=== PATIENT | female | born 1950 | race Caucasian/White ===

== ENCOUNTER 2016-09-16 15:51 | Emergency (ER) | payer MEDICARE, OTHER ==
--- NOTE | 2016-09-16 16:38 | ER Document Report ---
ED General - General Time seen by provider: 16:25 Mode of Arrival: Medic Information source: Patient, Emergency Med Personnel TRAVEL OUTSIDE OF THE [place] IN LAST 30 DAYS: No - HPI Onset: Other - Refer to HPI notes Similar symptoms previously: Yes Recently seen / treated by doctor: No <JAMESON MONTESINOS - Last Filed: 09/16/16 19:45> <SANDRINEJUAN RAMONMERRILL - Last Filed: 09/16/16 23:36> - General Chief Complaint: Pain All Over Stated Complaint: WEAKNESS Notes: Patient is a 66-year-old female presenting to the emergency department for back pain. Patient states that she has chronic back pain which is worse today. Patient does not know what has increased her back pain today and denies any recent falls, fever, dysuria, or numbness/tingling to her lower extremities. Patient does complain of some incontinence for the past month along with some diarrhea. Patient uses a wheelchair but states she is able to stand. Patient has not ambulated in 2 years because of her rheumatoid arthritis. Patient states she lives at home. Patient states she does not want any pain medications for her back pain. Patient has a history of degenerative disc disease, rheumatoid arthritis, and breast cancer. (JAMESON MONTESINOS) - Related Data Allergies/Adverse Reactions: Iodinated Contrast Media - Oral and [IV Dye, Iodine Containing] Allergy (Severe , Verified 08/07/14 16:24) Shortness of Breath Penicillins Allergy (Severe, Verified 08/07/14 16:24) shock Sulfa (Sulfonamide Antibiotics) Allergy (Severe, Verified 08/07/14 16:24) shock bee stings Allergy (Severe, Uncoded 08/07/14 16:24) Shortness of Breath fire ants Allergy (Severe, Uncoded 08/07/14 16:24) Shortness of Breath Past Medical History - General Information source: Patient - Social History Smoking Status: Never Smoker Chew tobacco use (# tins/day): No Frequency of alcohol use: None Drug Abuse: None Family History: None - Past Medical History Cardiac Medical History: Reports: Hx Heart Attack, Hx Hypertension Pulmonary Medical History: Reports: Hx Bronchitis Neurological Medical History: Reports: Hx Cerebrovascular Accident - Apr 2010-- right side deficits, Hx Seizures Renal/ Medical History: Reports: Hx Kidney Stones GI Medical History: Musculoskeltal Medical History: Reports Hx Arthritis - RHEUMATIOD, Reports Other - Degenerative disc disease Psychiatric Medical History: Reports: Hx Depression Infectious Medical History: Past Surgical History: Reports: Hx Orthopedic Surgery - Right ankle surgery, right hip replacement - Immunizations Hx Diphtheria, Pertussis, Tetanus Vaccination: Yes Hx Pneumococcal Vaccination: 04/12/12 <JAMESON MONTESINOS - Last Filed: 09/16/16 19:45> Review of Systems - Review of Systems Constitutional: No symptoms reported EENT: No symptoms reported Cardiovascular: No symptoms reported Respiratory: No symptoms reported Gastrointestinal: No symptoms reported Genitourinary: No symptoms reported Female Genitourinary: No symptoms reported Musculoskeletal: See HPI, Back pain Skin: No symptoms reported Hematologic/Lymphatic: No symptoms reported Neurological/Psychological: No symptoms reported -: Yes All other systems reviewed and negative <JAMESON MONTESINOS - Last Filed: 09/16/16 19:45> Physical Exam <JAMESON MONTESINOS - Last Filed: 09/16/16 19:45> <MERRILL HOPKINS - Last Filed: 09/16/16 23:36> - Vital signs Vitals: Temp Pulse Resp BP Pulse Ox 98.1 F 82 16 127/71 H 98 09/16/16 16:45 09/16/16 16:45 09/16/16 16:45 09/16/16 16:45 09/16/16 16:45 - Notes Notes: GENERAL: Alert, interacts well. No acute distress. HEAD: Normocephalic, atraumatic. EYES: Pupils equal, round, and reactive to light. Extraocular movements intact. ENT: Oral mucosa moist, tongue midline. NECK: Full range of motion. Supple. Trachea midline. LUNGS: Clear to auscultation bilaterally, no wheezes, rales, or rhonchi. No respiratory distress. HEART: Regular rate and rhythm. No murmurs, gallops, or rubs. ABDOMEN: Soft, non-tender. Non-distended. Bowel sounds present in all 4 quadrants. BACK: Midline bony tenderness to palpation at the thoracic lumbar junction. RECTAL: Sensory intact, good rectal tone, no melena, soft brown stool. EXTREMITIES: Moves all 4 extremities spontaneously. No edema, radial and dorsalis pedis pulses 2/4 bilaterally. No cyanosis. NEUROLOGICAL: Alert and oriented x3. Normal speech. Bicep DTRs 2+ bilaterally, patellar DTRs are slightly diminished bilaterally. PSYCH: Normal affect, normal mood. SKIN: Warm, dry, normal turgor. No rashes or lesions noted. (JAMESON MONTESINOS) Course - Laboratory Result Diagrams: 09/16/16 18:15 09/16/16 18:15 <JAMESON MONTESINOS - Last Filed: 09/16/16 19:45> - Laboratory Result Diagrams: 09/16/16 18:15 09/16/16 18:15 <MERRILL HOPKINS - Last Filed: 09/16/16 23:36> - Re-evaluation Re-evalutation: 09/16/16 19:21 CBC shows leukocytosis of 15.2, CMP shows slightly elevated potassium 5.1, CO2 slightly low 21 otherwise unremarkable, urinalysis is significant for urinary tract infection, this is sent for culture. As the patient is allergic to penicillins and sulfa drugs patient's UTI will be treated with ciprofloxacin. Patient is aware of the risks of C. difficile colitis. Patient will return for fevers, acutely worsening of her chronic diarrhea or any new or concerning symptoms. (MERRILL HOPKINS) - Vital Signs Vital signs: Temp Pulse Resp BP Pulse Ox 98.3 F 88 20 132/89 H 98 09/16/16 20:08 09/16/16 20:08 09/16/16 20:08 09/16/16 20:08 09/16/16 20:08 - Laboratory Laboratory results interpreted by me: 09/16/16 09/16/16 09/16/16 16:45 18:15 18:15 WBC 15.2 H RBC 3.70 L MCV 106 H MCH 35.9 H Seg Neutrophils % 82.2 H Lymphocytes % 10.0 L Absolute Neutrophils 12.5 H Potassium 5.1 H Carbon Dioxide 21 L Glucose 118 H Direct Bilirubin 0.6 H Urine Protein 100 H Urine Ketones TRACE H Urine Blood MODERATE H Ur Leukocyte Esterase MODERATE H Discharge <JAMESON MONTESINOS - Last Filed: 09/16/16 19:45> <MERRILL HOPKINS - Last Filed: 09/16/16 23:36> - Discharge Clinical Impression: UTI (urinary tract infection) Qualifiers: Urinary tract infection type: acute cystitis Hematuria presence: with hematuria Qualified Code(s): N30.01 - Acute cystitis with hematuria Condition: Stable Disposition: HOME, SELF-CARE Instructions: Urinary Tract Infection ([facility]) Additional Instructions: Return for fevers, worsening back pain, confusion or any new or concerning symptoms. Prescriptions: Ciprofloxacin HCl [Cipro 500 mg Tablet] 500 mg PO BID #10 tablet Phenazopyridine HCl [Pyridium 200 mg Tablet] 200 mg PO TID #7 tablet Referrals: XIMENA MAR DO [NO LOCAL MD] - Follow up in 3-5 days Scribe Attestation: 09/16/16 23:36 I personally performed the services described in the documentation, reviewed and edited the documentation which was dictated to the scribe in my presence, and it accurately records my words and actions. (MERRILL HOPKINS) Scribe Documentation - Scribe Written by Reji:: Reji Davey, 09/16/16 20:00 acting as scribe for :: Jaime <JAMESON MONTESINOS - Last Filed: 09/16/16 19:45>
[2016-09-16 17:17] LABS: APPEARANCE,URINE TURBID; BILIRUBIN,URINE NEGATIVE (NEGATIVE); GLUCOSE, URINE NEGATIVE (NEGATIVE); KETONES,URINE TRACE mg/dL (NEGATIVE); LEUKOCYTE ESTERASE,URINE MODERATE (NEGATIVE); NITRITE,URINE NEGATIVE (NEGATIVE); PROTEIN,URINE 100 mg/dL (NEGATIVE); URINE SPECIFIC GRAVITY 1.016; UROBILINOGEN,URINE NEGATIVE mg/dL (<2.0)
[2016-09-16] MEDS ORDERED: CIPROFLOXACIN HCL 500 MG TABLET PO SCH (18:30)
[2016-09-16 18:43] LABS: ABSOLUTE LYMPHOCYTES (AUTO) 1.5 10^3/uL (0.5-4.7); ABSOLUTE MONOCYTES (AUTO) 1.1 10^3/uL (0.1-1.4); ABSOLUTE NEUT (AUTO) 12.5 10^3/uL (1.7-8.2); BASOPHILS % (AUTO) 0.3 % (0-2); HEMATOCRIT 39.1 % (36.0-47.0); HEMOGLOBIN 13.3 g/dL (12.0-15.5); HGB HCT DIFFERENCE 0.8; MEAN CORPUSCULAR HEMOGLOBIN 35.9 pg (27.0-33.4); MEAN CORPUSCULAR HGB CONC 34.1 g/dL (32.0-36.0); MEAN CORPUSCULAR VOLUME 106 fl (80-97); MONOCYTES % (AUTO) 7.5 % (3-13); RED CELL DISTRIBUTION WIDTH 13.6 % (11.5-14.0); SEGMENTED NEUTROPHILS % (AUTO) 82.2 % (42-78); WHITE BLOOD COUNT 15.2 10^3/uL (4.0-10.5)
[2016-09-16 18:56] LABS: ALANINE AMINOTRANSFERASE 10 U/L (9-52); ALBUMIN 3.5 g/dL (3.5-5.0); ALKALINE PHOSPHATASE 126 U/L (38-126); ANION GAP 12 (5-19); ASPARTATE AMINO TRANSFERASE 22 U/L (14-36); BILIRUBIN,DIRECT 0.6 mg/dL (0.0-0.4); BILIRUBIN,TOTAL 0.8 mg/dL (0.2-1.3); BLOOD UREA NITROGEN 19 mg/dL (7-20); CALCIUM 9.6 mg/dL (8.4-10.2); CARBON DIOXIDE 21 mmol/L (22-30); CHLORIDE 105 mmol/L (98-107); CREATININE RESULT 0.92 mg/dL (0.52-1.25); GLUCOSE 118 mg/dL (75-110); POTASSIUM 5.1 mmol/L (3.6-5.0); SODIUM 137.8 mmol/L (137-145); TOTAL PROTEIN 7.5 g/dL (6.3-8.2)
[2016-09-16] MEDS ORDERED: CIPROFLOXACIN HCL 500 MG TABLET PO ONE (19:30)
[2016-09-16 20:23] VITALS: BP 132/89
--- NOTE | 2016-09-17 13:00 | ER Document Report ---
Doctor's Note Notes: 09/17/16 12:57 I called and spoke with the patient's Mr. Abelardo Morris in follow-up, he states the patient is feeling much better, has no confusion, has no fevers. He states that he has not yet filled her antibiotic prescription. I did encourage him to fill her antibiotic prescription as soon as possible, I stressed the importance of taking the entire prescription as directed until it is gone. They will return for fevers, confusion or any new or concerning symptoms.
== END 2016-09-16 20:08 | disposition home or self-care (01) ==
LOC: ER 15:51
DX: N30.01 Acute cystitis with hematuria (principal); M06.9 Rheumatoid arthritis, unspecified; M54.9 Dorsalgia, unspecified; G89.29 Other chronic pain; R32 Unspecified urinary incontinence; R19.7 Diarrhea, unspecified; D72.829 Elevated white blood cell count, unspecified; I25.2 Old myocardial infarction; I10 Essential (primary) hypertension; Z99.3 Dependence on wheelchair; Z85.3 Personal history of malignant neoplasm of breast; Z91.041 Radiographic dye allergy status; Z88.0 Allergy status to penicillin; Z88.2 Allergy status to sulfonamides; Z91.030 Bee allergy status; Z91.038 Other insect allergy status; Z86.73 Personal history of transient ischemic attack (TIA), and cerebral infarction without residual deficits
CPT/HCPCS: 99285; 36415; 87086; 85025; 87088; 80053; 81001; 87186; 72110; 72070; A9270

== ENCOUNTER 2016-09-21 10:45 | Observation (INO) | payer MEDICARE, OTHER, MEDICAID ==
[2016-09-21 11:35] LABS: ABSOLUTE BASOPHILS # (AUTO) 0.1 10^3/uL (0.0-0.2); ABSOLUTE EOSINOPHILS # (AUTO) 0.1 10^3/uL (0.0-0.6); ABSOLUTE LYMPHOCYTES (AUTO) 3.1 10^3/uL (0.5-4.7); ABSOLUTE MONOCYTES (AUTO) 0.5 10^3/uL (0.1-1.4); ABSOLUTE NEUT (AUTO) 3.2 10^3/uL (1.7-8.2); BASOPHILS % (AUTO) 0.8 % (0-2); HEMATOCRIT 33.4 % (36.0-47.0); HEMOGLOBIN 11.3 g/dL (12.0-15.5); HGB HCT DIFFERENCE 0.5; LYMPHOCYTES % (AUTO) 44.4 % (13-45); MEAN CORPUSCULAR HEMOGLOBIN 35.8 pg (27.0-33.4); MEAN CORPUSCULAR HGB CONC 33.7 g/dL (32.0-36.0); MEAN CORPUSCULAR VOLUME 106 fl (80-97); RED BLOOD COUNT 3.15 10^6/uL (3.72-5.28); RED CELL DISTRIBUTION WIDTH 13.7 % (11.5-14.0); SEGMENTED NEUTROPHILS % (AUTO) 46.8 % (42-78); WHITE BLOOD COUNT 6.9 10^3/uL (4.0-10.5)
[2016-09-21 11:48] LABS: ALANINE AMINOTRANSFERASE 23 U/L (9-52); ALBUMIN 3.3 g/dL (3.5-5.0); ALKALINE PHOSPHATASE 122 U/L (38-126); ANION GAP 12 (5-19); ASPARTATE AMINO TRANSFERASE 18 U/L (14-36); BILIRUBIN,DIRECT 0.3 mg/dL (0.0-0.4); BILIRUBIN,TOTAL 0.3 mg/dL (0.2-1.3); BLOOD UREA NITROGEN 11 mg/dL (7-20); CALCIUM 8.8 mg/dL (8.4-10.2); CARBON DIOXIDE 23 mmol/L (22-30); CHLORIDE 106 mmol/L (98-107); CREATINE KINASE 30 U/L (30-135); CREATININE RESULT 1.03 mg/dL (0.52-1.25); GLUCOSE 90 mg/dL (75-110); MAGNESIUM 1.6 mg/dL (1.6-2.3); POTASSIUM 3.8 mmol/L (3.6-5.0); SODIUM 141.2 mmol/L (137-145); TOTAL PROTEIN 6.7 g/dL (6.3-8.2)
[2016-09-21 11:56] LABS: ALCOHOL < 10 mg/dL (NONE DETECTED)
[2016-09-21 11:59] LABS: CREATINE KINASE MB 0.97 ng/mL (<4.55)
[2016-09-21 12:00] LABS: TROPONIN I < 0.012 ng/mL
--- NOTE | 2016-09-21 12:05 | EKG REPORT ---
SEVERITY:- ABNORMAL ECG - SINUS RHYTHM ATRIAL PREMATURE COMPLEX LOW VOLTAGE IN FRONTAL LEADS ABNORMAL T, CONSIDER ISCHEMIA, DIFFUSE LEADS BORDERLINE PROLONGED QT INTERVAL : Confirmed by: Cassandra Maravilla 21-Sep-2016 12:04:52
[2016-09-21 12:21] LABS: APPEARANCE,URINE CLOUDY; BILIRUBIN,URINE NEGATIVE (NEGATIVE); GLUCOSE, URINE NEGATIVE (NEGATIVE); KETONES,URINE NEGATIVE (NEGATIVE); LEUKOCYTE ESTERASE,URINE LARGE (NEGATIVE); NITRITE,URINE POSITIVE (NEGATIVE); PROTEIN,URINE NEGATIVE (NEGATIVE); UROBILINOGEN,URINE NEGATIVE mg/dL (<2.0)
[2016-09-21 12:29] LABS: URINE BARBITURATES SCREEN NEGATIVE; URINE METHADONE SCREEN NEGATIVE; URINE OPIATES LOW UNCONFIRMED POSITIVE; URINE PHENCYCLIDINE SCREEN NEGATIVE
[2016-09-21] MEDS ORDERED: CEFTRIAXONE 1 GM/D5W RTU 50 ML IV ONE (14:06)
[2016-09-21] MEDS ORDERED: CEPHALEXIN 500 MG CAPSULE PO ONE (14:06)
--- NOTE | 2016-09-21 14:20 | ER Document Report ---
ED General - General Chief Complaint: Chest Pain Stated Complaint: CHEST PAIN Time Seen by Provider: 09/21/16 11:04 TRAVEL OUTSIDE OF THE [place] IN LAST 30 DAYS: No - Related Data Allergies/Adverse Reactions: Iodinated Contrast Media - Oral and [IV Dye, Iodine Containing] Allergy (Severe , Verified 08/07/14 16:24) Shortness of Breath Penicillins Allergy (Severe, Verified 08/07/14 16:24) shock Sulfa (Sulfonamide Antibiotics) Allergy (Severe, Verified 08/07/14 16:24) shock bee stings Allergy (Severe, Uncoded 08/07/14 16:24) Shortness of Breath fire ants Allergy (Severe, Uncoded 08/07/14 16:24) Shortness of Breath Past Medical History - Social History Smoking Status: Former Smoker Chew tobacco use (# tins/day): No Frequency of alcohol use: None Drug Abuse: None Family History: None - Past Medical History Cardiac Medical History: Reports: Hx Heart Attack, Hx Hypertension Pulmonary Medical History: Reports: Hx Bronchitis Neurological Medical History: Reports: Hx Cerebrovascular Accident - Apr 2010-- right side deficits, Hx Seizures Renal/ Medical History: Reports: Hx Kidney Stones GI Medical History: Musculoskeltal Medical History: Reports Hx Arthritis - RHEUMATIOD Psychiatric Medical History: Reports: Hx Depression Infectious Medical History: Past Surgical History: Reports: Hx Orthopedic Surgery - Right ankle surgery, right hip replacement. Denies: Hx Hysterectomy, Hx Mastectomy, Hx Open Heart Surgery - Immunizations Hx Diphtheria, Pertussis, Tetanus Vaccination: Yes Hx Pneumococcal Vaccination: 04/12/12 Physical Exam - Vital signs Vitals: Resp 13 09/21/16 10:57 Course - Vital Signs Vital signs: Temp Pulse Resp BP Pulse Ox 10 L 113/72 95 09/21/16 12:01 09/21/16 12:01 09/21/16 11:02 - Laboratory Result Diagrams: 09/21/16 11:25 09/21/16 11:25 Laboratory results interpreted by me: 09/21/16 09/21/16 09/21/16 11:25 11:25 11:55 RBC 3.15 L Hgb 11.3 L Hct 33.4 L MCV 106 H MCH 35.8 H Est GFR (Non-Af Amer) 54 L Albumin 3.3 L Urine Blood MODERATE H Urine Nitrite POSITIVE H Ur Leukocyte Esterase LARGE H Discharge - Discharge Clinical Impression: diffuse T-wave inversions new, Chest pain, rule out acute myocardial infarction , UTI (lower urinary tract infection), Narcotic dependence, Aphasia as late effect of cerebrovascular accident (CVA) Condition: Good Disposition: ADMITTED OBSERVATION Admitting Provider: Hospitalist - [facility] Admitted: Telemetry
[2016-09-21] MEDS ORDERED: TEMAZEPAM 15 MG CAPSULE PO PRN (14:23)
[2016-09-21] MEDS ORDERED: NITROGLYCERIN 0.4 MG/TAB 25 TAB/BOTTLE SL PRN (14:23)
[2016-09-21] MEDS ORDERED: ONDANSETRON HCL INJ/PF 4 MG/2 ML SDV IV PRN (14:23)
--- NOTE | 2016-09-21 15:08 | PDOC H&P ---
History of Present Illness Admission Date/PCP: 09/21/16 14:27 SYDNEE CLARIUNKQUANGA Patient complains of: Midsternal chest pain radiating towards left clavicle History of Present Illness: EVERTON GAYTAN is a 66 year old female with past medical history of left- sided CVA with mild residual weakness, expressive aphasia, coronary artery disease, and essential hypertension; presents to [facility]'s emergency room this afternoon via EMS with complaints of midsternal chest pain radiating to her left clavicle. Patient was pain-free upon arrival she had been given 1 sublingual nitroglycerin en route. She states the pain occurred at rest, and did not seem to increase with activity. She states overall pain lasted approximately 30 minutes. She denies any associated diaphoresis, nausea , or shortness of breath associated with the pain. She presently states she has no complaints. She does not recall she's had a stress test in the last recent years. She denies any history of cardiac catheterizations. Past Medical History Cardiac Medical History: Reports: Myocardial Infarction, Hypertension Pulmonary Medical History: Reports: Bronchitis EENT Medical History: Reports: None Neurological Medical History: Reports: Seizures Endocrine Medical History: Reports: None Renal/ Medical History: Reports: None Malignancy Medical History: Reports: None GI Medical History: Reports: None Musculoskeltal Medical History: Reports: Arthritis - RHEUMATIOD Psychiatric Medical History: Reports: Depression Traumatic Medical History: Reports: None Hematology: Denies: Anemia, Sickle Cell Disease Infectious Medical History: Reports: None Past Surgical History Past Surgical History: Reports: Orthopedic Surgery - Right ankle surgery, right hip replacement Denies: Amputation, Hysterectomy, Mastectomy Social History Information Source: Patient Lives with: Spouse/Significant other Smoking Status: Former Smoker Number of Years Smokin Frequency of Alcohol Use: None Hx Recreational Drug Use: No Hx Prescription Drug Abuse: No - Advance Directive Resuscitation Status: Full Code Surrogate healthcare decision maker:: Family History Family History: Hyperlipidemia, Hypertension Parental Family History Reviewed: Yes Children Family History Reviewed: Yes Sibling(s) Family History Reviewed.: Yes Medication/Allergy Home Medications: Aspirin [Ecotrin 325 mg EC Tablet] 325 mg PO DAILY #7 tabec 08/17/14 Buspirone HCl 1 tab PO BID #14 tablet 08/17/14 Carisoprodol 1 tab PO DAILY #7 tablet 04/07/15 Cefuroxime Axetil [Ceftin 500 mg Tablet] 500 mg PO BID #14 tablet 08/17/14 Cyproheptadine HCl 4 mg PO BID #14 08/17/14 Duloxetine HCl 30 mg PO BID #14 08/17/14 Fentanyl [Duragesic 12 Mcg/Hr Transdermal Patch] 1 each TD Q3DAYS #5 patch.[id number] 08/17/14 Lansoprazole 30 mg PO DAILY #7 08/17/14 Lisinopril [Prinivil 5 mg Tablet] 2.5 mg PO DAILY #7 tablet 08/17/14 Prednisone 1 mg PO DAILY #7 tablet 08/17/14 Sennosides/Docusate 8.6-50 mg [Senna Plus Tablet] 1 each PO BID #14 tablet 08/17 Tramadol HCl [Ultram] 50 mg PO Q6HP PRN #20 tablet 01/04/16 Cephalexin Monohydrate [Keflex 500 mg Capsule] 500 mg PO Q6H 7 Days 04/26/16 Ciprofloxacin HCl [Cipro 500 mg Tablet] 500 mg PO BID #10 tablet 09/16/16 Phenazopyridine HCl [Pyridium 200 mg Tablet] 200 mg PO TID #7 tablet 09/16/16 Allergies/Adverse Reactions: Iodinated Contrast Media - Oral and [IV Dye, Iodine Containing] Allergy (Severe , Verified 08/07/14 16:24) Shortness of Breath Penicillins Allergy (Severe, Verified 08/07/14 16:24) shock Sulfa (Sulfonamide Antibiotics) Allergy (Severe, Verified 08/07/14 16:24) shock bee stings Allergy (Severe, Uncoded 08/07/14 16:24) Shortness of Breath fire ants Allergy (Severe, Uncoded 08/07/14 16:24) Shortness of Breath Review of Systems Constitutional: ABSENT: chills, fever(s), headache(s), weight gain, weight loss Ears: ABSENT: hearing changes Cardiovascular: PRESENT: chest pain Respiratory: ABSENT: cough, hemoptysis Gastrointestinal: ABSENT: abdominal pain, constipation, diarrhea, hematemesis, hematochezia, nausea, vomiting Genitourinary: ABSENT: dysuria, hematuria Musculoskeletal: PRESENT: muscle weakness - left sided extremities Integumentary: ABSENT: rash, wounds Neurological: PRESENT: abnormal gait, weakness - left sided extremities, mild expressive aphasia Psychiatric: ABSENT: anxiety, depression, homidical ideation, suicidal ideation Endocrine: ABSENT: cold intolerance, heat intolerance, polydipsia, polyuria Hematologic/Lymphatic: ABSENT: easy bleeding, easy bruising Physical Exam Vital Signs: Temp Pulse Resp BP Pulse Ox 23 H 113/56 L 95 09/21/16 14:01 09/21/16 14:01 09/21/16 11:02 General appearance: PRESENT: no acute distress, well-developed, well-nourished Head exam: PRESENT: atraumatic, normocephalic Eye exam: PRESENT: conjunctiva pink, EOMI, PERRLA. ABSENT: scleral icterus Ear exam: PRESENT: normal external ear exam Mouth exam: PRESENT: moist, tongue midline Neck exam: ABSENT: carotid bruit, JVD, lymphadenopathy, thyromegaly Respiratory exam: PRESENT: clear to auscultation steve. ABSENT: rales, rhonchi, wheezes Cardiovascular exam: PRESENT: RRR. ABSENT: diastolic murmur, rubs, systolic murmur Pulses: PRESENT: normal dorsalis pedis pul Vascular exam: PRESENT: normal capillary refill GI/Abdominal exam: PRESENT: normal bowel sounds, soft. ABSENT: distended, guarding, mass, organolmegaly, rebound, tenderness Rectal exam: PRESENT: deferred Extremities exam: PRESENT: full ROM. ABSENT: calf tenderness, clubbing, pedal edema Neurological exam: PRESENT: alert, awake, oriented to person, oriented to place , oriented to time, oriented to situation, CN II-XII grossly intact, other - expressive aphasia. ABSENT: motor sensory deficit Psychiatric exam: PRESENT: appropriate affect, normal mood. ABSENT: homicidal ideation, suicidal ideation Skin exam: PRESENT: dry, intact, warm. ABSENT: cyanosis, rash Results Impressions: Chest X-Ray 09/21/16 10:57 IMPRESSION: NO ACUTE RADIOGRAPHIC FINDING IN THE CHEST. Assessment & Plan - Diagnosis (1) Chest pain, rule out acute myocardial infarction Is this a current diagnosis for this admission?: YesPlan: Patient will be admitted to telemetry on observation. She will have serial troponins done overnight. Pain is atypical presentation for cardiac in origin most likely musculoskeletal. (2) CVA, old, aphasia Is this a current diagnosis for this admission?: Yes (3) Narcotic dependence Is this a current diagnosis for this admission?: YesPlan: We'll continue patient's current pain regimen per pain management (4) Essential hypertension Is this a current diagnosis for this admission?: YesPlan: Continue patient's current medications she is presently normotensive (5) Hyperlipidemia Qualifiers: Hyperlipidemia type: unspecified Qualified Code(s): E78.5 - Hyperlipidemia, unspecified Is this a current diagnosis for this admission?: YesPlan: We'll check fasting lipids in the a.m. continue statin therapy. - Time Time Spent: 50 to 70 Minutes Critical Time spent with patient: 25-34 minutes Medications reviewed and adjusted accordingly: Yes Anticipated discharge: Home Within: within 24 hours
[2016-09-21] MEDS: LANSOPRAZOLE 30 MG TAB.RAP.DR PO SCH (16:31)
[2016-09-22] MEDS: LANSOPRAZOLE 30 MG TAB.RAP.DR PO SCH (05:52)
[2016-09-22 06:30] VITALS: BP 125/52
[2016-09-22] MEDS ORDERED: ASPIRIN 81 MG TABLET, ENT COATED PO SCH (10:00)
--- NOTE | 2016-09-22 11:35 | PDOC DISCHARGE SUMMARY ---
General - Admit/Disc Date/PCP Admission Date/Primary Care Provider: 09/21/16 14:27 SYDNEE OSUNKOYA Discharge Date: 09/22/16 - Discharge Diagnosis (1) Chest pain, rule out acute myocardial infarction Is this a current diagnosis for this admission?: YesSummary: Troponins all <0.012, pain more typical for musculoskeletal (2) CVA, old, aphasia Is this a current diagnosis for this admission?: Yes (3) Narcotic dependence Is this a current diagnosis for this admission?: YesSummary: Continue medications per pain management (4) Essential hypertension Is this a current diagnosis for this admission?: YesSummary: Patient is normotensive on current medications (5) Hyperlipidemia Is this a current diagnosis for this admission?: YesSummary: Continue statin - Additional Information Resuscitation Status: Full Code Discharge Diet: Cardiac Discharge Activity: Activity As Tolerated, Balance Activity w/Rest Home Medications: Buspirone HCl [Buspar 30 mg Tablet] 1 tab PO Q12 09/21/16 Carisoprodol [Soma 350 mg Tablet] 350 mg PO QID 09/21/16 Cholecalciferol (Vitamin D3) [Vitamin D3 2000 unit Tablet] 2,000 unit PO BID 04/28 Cyproheptadine HCl [Periactin 4 mg Tablet] 4 mg PO BID 09/21/16 Duloxetine HCl 30 mg PO Q12 09/21/16 Morphine Sulfate [Morphine Sulfate ER] 15 mg PO Q12 09/21/16 Omeprazole 20 mg PO DAILY 09/21/16 Oxycodone HCl 15 mg PO QID 09/21/16 Prednisone [Deltasone 1 mg Tablet] 1 mg PO BID 09/21/16 Cefuroxime Axetil [Ceftin 500 mg Tablet] 500 mg PO BID #18 tablet 09/22/16 History of Present Illness Patient complains of: Left sided chest discomfort radiating towards clavicle History of Present Illness: EVERTON GAYTAN is a 66 year old female with past medical history of left- sided CVA with mild residual weakness, expressive aphasia, coronary artery disease, and essential hypertension; presents to [facility]'s emergency room this afternoon via EMS with complaints of midsternal chest pain radiating to her left clavicle. Patient was pain-free upon arrival she had been given 1 sublingual nitroglycerin en route. She states the pain occurred at rest, and did not seem to increase with activity. She states overall pain lasted approximately 30 minutes. She denies any associated diaphoresis, nausea , or shortness of breath associated with the pain. She presently states she has no complaints. She does not recall she's had a stress test in the last recent years. She denies any history of cardiac catheterizations. Hospital Course Hospital Course: Patient was admitted to telemetry for observation. Serial troponins were obtained every 6 hours. All troponins remained negative. Patient had no further episodes of chest discomfort. She did have evidence of urinary tract infection on routine urinalysis with positive nitrates large amount of leukocytes and moderate amount of blood. She was started on broad-spectrum antibiotics. She will discharge today in follow-up with her primary care provider symptoms recur. Physical Exam Vital Signs: Temp Pulse Resp BP Pulse Ox 98.7 F 78 18 125/52 L 99 09/22/16 10:58 09/22/16 10:58 09/22/16 10:58 09/22/16 04:27 09/22/16 10:58 Intake & Output 09/21/16 09/22/16 09/23/16 06:59 06:59 06:59 Intake Total 305 Output Total 0 Balance 305 Weight 62.6 kg General appearance: PRESENT: no acute distress, well-developed, well-nourished Head exam: PRESENT: atraumatic, normocephalic Eye exam: PRESENT: conjunctiva pink, EOMI, PERRLA. ABSENT: scleral icterus Ear exam: PRESENT: normal external ear exam Mouth exam: PRESENT: moist, tongue midline Neck exam: ABSENT: carotid bruit, JVD, lymphadenopathy, thyromegaly Respiratory exam: PRESENT: clear to auscultation steve. ABSENT: rales, rhonchi, wheezes Cardiovascular exam: PRESENT: RRR. ABSENT: diastolic murmur, rubs, systolic murmur Pulses: PRESENT: normal dorsalis pedis pul Vascular exam: PRESENT: normal capillary refill GI/Abdominal exam: PRESENT: normal bowel sounds, soft. ABSENT: distended, guarding, mass, organolmegaly, rebound, tenderness Rectal exam: PRESENT: deferred Extremities exam: PRESENT: full ROM. ABSENT: calf tenderness, clubbing, pedal edema Musculoskeletal exam: PRESENT: ambulatory Neurological exam: PRESENT: alert, awake, oriented to person, oriented to place , oriented to time, oriented to situation, abnormal gait - right sided weakness from prior CVA, CN II-XII grossly intact, other - mild expressive dysphasia. ABSENT: motor sensory deficit Psychiatric exam: PRESENT: appropriate affect, normal mood. ABSENT: homicidal ideation, suicidal ideation Skin exam: PRESENT: dry, intact, warm. ABSENT: cyanosis, rash Results Laboratory Results: 09/21/16 09/21/16 17:30 23:31 Troponin I < 0.012 < 0.012 Impressions: Chest X-Ray 09/21/16 10:57 IMPRESSION: NO ACUTE RADIOGRAPHIC FINDING IN THE CHEST. Qualifiers PATEINT BEING DISCHARGED WITH ANY OF THE FOLLOWING DIAGNOSIS?: No Plan Discharge Plan: Home with Time Spent: Less than 30 Minutes
[2016-09-22] MEDS ORDERED: CEFUROXIME 500 MG TABLET PO SCH (18:00)
== END 2016-09-22 12:58 | disposition home or self-care (01) ==
LOC: ER 10:45 → EH 14:27 → INTOOBSV 14:27 → 4N 15:53
PROVIDERS: ADMIT Internal Medicine; ATTEND Internal Medicine
DX: R07.89 Other chest pain (principal); I69.320 Aphasia following cerebral infarction; F11.20 Opioid dependence, uncomplicated; I10 Essential (primary) hypertension; E78.5 Hyperlipidemia, unspecified; I69.354 Hemiplegia and hemiparesis following cerebral infarction affecting left non-dominant side; I69.321 Dysphasia following cerebral infarction; I25.10 Atherosclerotic heart disease of native coronary artery without angina pectoris; N39.0 Urinary tract infection, site not specified; R31.9 Hematuria, unspecified; I25.2 Old myocardial infarction; M06.9 Rheumatoid arthritis, unspecified; Z79.899 Other long term (current) drug therapy; Z87.891 Personal history of nicotine dependence; Z82.49 Family history of ischemic heart disease and other diseases of the circulatory system; Z96.641 Presence of right artificial hip joint; Z79.82 Long term (current) use of aspirin
CPT/HCPCS: 93005; 99285; 51701; 36415; 82553; 82962; 80307 ×2; 82550; 83735; 85025; 80053; 81001; 84484; 71010; 93010; G0378 ×3; A9270 ×4; J3490 ×2; J0696

== ENCOUNTER 2016-10-11 14:15 | Emergency (ER) | payer MEDICARE, OTHER ==
[2016-10-11] MEDS: NORMAL SALINE 1000 ML 1,000 ML IV PRN ×3 (15:18→17:03)
--- NOTE | 2016-10-11 15:18 | ER Document Report ---
ED General - General Chief Complaint: General Weakness Stated Complaint: WEAKNESS Time Seen by Provider: 10/11/16 15:08 Mode of Arrival: Stretcher Information source: Emergency Med Personnel TRAVEL OUTSIDE OF THE [place] IN LAST 30 DAYS: No - HPI Patient complains to provider of: generalized weakness Onset: Other - 2 days Onset/Duration: Gradual Quality of pain: Achy Severity: Mild Pain Level: 2 Associated symptoms: Body/muscle aches Notes: 66-year-old female who was brought to the emergency room by EMS for generalized weakness that has been worsening over the past 2 days, patient only answers yes and no questions at this point in time, she is sedated, falls back asleep easily and has pinpoint pupils, she has a history of narcotic dependence in the past - Related Data Allergies/Adverse Reactions: Iodinated Contrast Media - Oral and [IV Dye, Iodine Containing] Allergy (Severe , Verified 08/07/14 16:24) Shortness of Breath Penicillins Allergy (Severe, Verified 08/07/14 16:24) shock Sulfa (Sulfonamide Antibiotics) Allergy (Severe, Verified 08/07/14 16:24) shock bee stings Allergy (Severe, Uncoded 08/07/14 16:24) Shortness of Breath fire ants Allergy (Severe, Uncoded 08/07/14 16:24) Shortness of Breath Past Medical History - General Information source: Patient, Emergency Med Personnel - Social History Smoking Status: Current Every Day Smoker Frequency of alcohol use: Social Drug Abuse: None Family History: Hyperlipidemia, Hypertension - Past Medical History Cardiac Medical History: Reports: Hx Heart Attack, Hx Hypertension Pulmonary Medical History: Reports: Hx Bronchitis Neurological Medical History: Reports: Hx Cerebrovascular Accident - Apr 2010-- right side deficits, Hx Seizures Renal/ Medical History: Reports: Hx Kidney Stones GI Medical History: Musculoskeltal Medical History: Reports Hx Arthritis - RHEUMATIOD Psychiatric Medical History: Reports: Hx Depression Infectious Medical History: Past Surgical History: Reports: Hx Orthopedic Surgery - Right ankle surgery, right hip replacement. Denies: Hx Hysterectomy, Hx Mastectomy, Hx Open Heart Surgery - Immunizations Hx Diphtheria, Pertussis, Tetanus Vaccination: Yes Hx Pneumococcal Vaccination: 04/12/12 Review of Systems - Review of Systems -: Yes ROS unobtainable due to patient's medical condition Constitutional: Weakness Physical Exam - Vital signs Vitals: Resp 14 10/11/16 14:43 Interpretation: Hypotensive - General General appearance: Appears well, Alert - HEENT Head: Normocephalic, Atraumatic Eyes: Normal Conjunctiva: Normal Extraocular movements intact: Yes Eyelashes: Normal Pupils: Pinpoint - Respiratory Respiratory status: No respiratory distress Chest status: Nontender Breath sounds: Normal Chest palpation: Normal - Cardiovascular Rhythm: Regular Heart sounds: Normal auscultation Murmur: No - Abdominal Inspection: Normal Distension: No distension Bowel sounds: Normal Tenderness: Nontender Organomegaly: No organomegaly - Back Back: Normal, Nontender - Extremities General upper extremity: Normal inspection, Nontender, Normal color, Normal ROM , Normal temperature General lower extremity: Normal inspection, Nontender, Normal color, Normal ROM , Normal temperature, Normal weight bearing. No: César's sign - Neurological Orientation: AAOx4 [place] Coma Scale Eye Opening: To Voice [place] Coma Scale Verbal: Confused Stephanie Coma Scale Motor: Obeys Commands [place] Coma Scale Total: 13 - Skin Skin Temperature: Warm Skin Moisture: Dry Skin Color: Pale Course - Re-evaluation Re-evalutation: 10/11/16 19:13 Patient resting comfortably, easily arousable stating she wishes to go home, noted to have a slight urinary tract infection, however continues to have mild hypotension, additional IV fluids have been ordered, symptoms are likely related to combination of urinary tract infection and overmedication with narcotic pain medication the patient takes at home 10/11/16 22:47 Doing much better, vital signs are improved, she is noted to be slightly hypoxic at times but is a smoker, with a history of COPD, appears in no acute distress and states she is ready to go home, she will be discharged with antibiotics and advised to follow-up if symptoms worsen, patient acknowledges understanding and agreement with this plan - Vital Signs Vital signs: Temp Pulse Resp BP Pulse Ox 98.1 F 15 109/56 L 89 L 10/11/16 15:45 10/11/16 18:46 10/11/16 18:46 10/11/16 17:54 - Laboratory Result Diagrams: 10/11/16 16:00 10/11/16 16:00 Laboratory results interpreted by me: 10/11/16 10/11/16 10/11/16 15:45 16:00 16:00 RBC 2.96 L Hgb 10.7 L Hct 31.8 L MCV 108 H MCH 36.2 H Plt Count 145 L Seg Neutrophils % 80.3 H VBG pH Carbon Dioxide 21 L Calcium 8.3 L Creatine Kinase 193 H Albumin 3.2 L Urine Protein 100 H Urine Ketones TRACE H Urine Nitrite POSITIVE H Ur Leukocyte Esterase MODERATE H Urine Ascorbic Acid 40 H 10/11/16 16:00 RBC Hgb Hct MCV MCH Plt Count Seg Neutrophils % VBG pH 7.27 L Carbon Dioxide Calcium Creatine Kinase Albumin Urine Protein Urine Ketones Urine Nitrite Ur Leukocyte Esterase Urine Ascorbic Acid - EKG Interpretation by Me EKG shows normal: Sinus rhythm Rate: Normal Rhythm: NSR When compared to previous EKG there are: No significant change Discharge - Discharge Clinical Impression: UTI (lower urinary tract infection) Condition: Stable Disposition: HOME, SELF-CARE Instructions: Urinary Tract Infection ([facility]) Additional Instructions: Follow up with your primary care provider in one to 2 days. Return to the emergency room immediately if symptoms worsen or any additional concerns. Prescriptions: Cephalexin Monohydrate [Keflex 500 mg Capsule] 500 mg PO BID #20 capsule Referrals: SYDNEE LOZANO MD [Primary Care Provider] - Follow up as needed
[2016-10-11 16:18] LABS: APPEARANCE,URINE TURBID; BILIRUBIN,URINE NEGATIVE (NEGATIVE); GLUCOSE, URINE NEGATIVE (NEGATIVE); KETONES,URINE TRACE mg/dL (NEGATIVE); LEUKOCYTE ESTERASE,URINE MODERATE (NEGATIVE); NITRITE,URINE POSITIVE (NEGATIVE); PROTEIN,URINE 100 mg/dL (NEGATIVE); URINE SPECIFIC GRAVITY 1.014; UROBILINOGEN,URINE NEGATIVE mg/dL (<2.0)
[2016-10-11 16:29] LABS: VENOUS BLOOD BASE EXCESS -4.6 mmol/L; VENOUS BLOOD HCO3 22.5 mmol/L (20-32); VENOUS BLOOD PCO2 50.5 mmHg (35-63); VENOUS BLOOD PH 7.27 (7.30-7.42)
[2016-10-11 16:30] LABS: URINE BARBITURATES SCREEN NEGATIVE; URINE METHADONE SCREEN NEGATIVE; URINE OPIATES LOW UNCONFIRMED POSITIVE; URINE PHENCYCLIDINE SCREEN NEGATIVE
[2016-10-11 16:32] LABS: ABSOLUTE LYMPHOCYTES (AUTO) 1.1 10^3/uL (0.5-4.7); ABSOLUTE MONOCYTES (AUTO) 0.5 10^3/uL (0.1-1.4); ABSOLUTE NEUT (AUTO) 6.8 10^3/uL (1.7-8.2); BASOPHILS % (AUTO) 0.2 % (0-2); HEMATOCRIT 31.8 % (36.0-47.0); HEMOGLOBIN 10.7 g/dL (12.0-15.5); HGB HCT DIFFERENCE 0.3; LYMPHOCYTES % (AUTO) 13.2 % (13-45); MEAN CORPUSCULAR HEMOGLOBIN 36.2 pg (27.0-33.4); MEAN CORPUSCULAR HGB CONC 33.7 g/dL (32.0-36.0); MEAN CORPUSCULAR VOLUME 108 fl (80-97); MONOCYTES % (AUTO) 6.3 % (3-13); RED BLOOD COUNT 2.96 10^6/uL (3.72-5.28); RED CELL DISTRIBUTION WIDTH 13.4 % (11.5-14.0); SEGMENTED NEUTROPHILS % (AUTO) 80.3 % (42-78); WHITE BLOOD COUNT 8.5 10^3/uL (4.0-10.5)
[2016-10-11 16:47] LABS: ALANINE AMINOTRANSFERASE 23 U/L (9-52); ALBUMIN 3.2 g/dL (3.5-5.0); ALKALINE PHOSPHATASE 93 U/L (38-126); ANION GAP 11 (5-19); ASPARTATE AMINO TRANSFERASE 23 U/L (14-36); BILIRUBIN,DIRECT 0.4 mg/dL (0.0-0.4); BILIRUBIN,TOTAL 0.5 mg/dL (0.2-1.3); BLOOD UREA NITROGEN 18 mg/dL (7-20); CALCIUM 8.3 mg/dL (8.4-10.2); CARBON DIOXIDE 21 mmol/L (22-30); CHLORIDE 107 mmol/L (98-107); CREATINE KINASE 193 U/L (30-135); CREATININE RESULT 0.84 mg/dL (0.52-1.25); GLUCOSE 93 mg/dL (75-110); POTASSIUM 4.1 mmol/L (3.6-5.0); SODIUM 138.8 mmol/L (137-145); TOTAL PROTEIN 6.9 g/dL (6.3-8.2)
[2016-10-11] MEDS ORDERED: CEFTRIAXONE INJ 1000 MG VIAL IV ONE (16:50)
[2016-10-11 16:58] LABS: CREATINE KINASE MB 1.08 ng/mL (<4.55)
[2016-10-11 17:08] LABS: TROPONIN I < 0.012 ng/mL
[2016-10-11] MEDS ORDERED: NORMAL SALINE 1000 ML 1,000 ML IV PRN (17:56)
[2016-10-11 18:56] VITALS: BP 109/56
--- NOTE | 2016-10-12 08:52 | EKG REPORT ---
SEVERITY:- ABNORMAL ECG - SINUS RHYTHM LEFT AXIS DEVIATION LOW VOLTAGE IN FRONTAL LEADS NONSPECIFIC T ABNORMALITIES, ANTERIOR LEADS : Confirmed by: Cassandra Maravilla 12-Oct-2016 08:50:59
== END 2016-10-11 19:20 | disposition home or self-care (01) ==
LOC: ER 14:15
DX: N39.0 Urinary tract infection, site not specified (principal); R53.1 Weakness; M79.1 Myalgia; I95.9 Hypotension, unspecified; I10 Essential (primary) hypertension; F17.200 Nicotine dependence, unspecified, uncomplicated; I69.951 Hemiplegia and hemiparesis following unspecified cerebrovascular disease affecting right dominant side; Z88.0 Allergy status to penicillin; Z88.2 Allergy status to sulfonamides; Z91.030 Bee allergy status; Z91.038 Other insect allergy status; Z87.442 Personal history of urinary calculi; Z96.641 Presence of right artificial hip joint; I25.2 Old myocardial infarction
CPT/HCPCS: 93005; 99285; 96361; 51701; 96365; 36415; 87040; 87086; 82553; 82550; 85025; 87088; 80053; 81001; 84484; 87186; 80307; 82803; 93010; J0696; J7030

== ENCOUNTER 2016-10-29 19:24 | Inpatient (IN) | payer MEDICARE, OTHER ==
--- NOTE | 2016-10-29 19:52 | ER Document Report ---
ED Medical Screen (RME) - General Chief Complaint: Slurred Speech Stated Complaint: SPEECH DIFFICULTY Time Seen by Provider: 10/29/16 19:50 Mode of Arrival: Medic Information source: Transfer Record Cannot obtain history due to: Other - slurred speech Notes: Patient presents with EMS with report of slurred speech that started at 10 AM today. EMS report that they obtained the history from her spouse who will be on his way here shortly. Patient does have a history of previous CVA with left- sided residual weakness. Patient with noted slurred speech and left-sided facial droop. TRAVEL OUTSIDE OF THE [place] IN LAST 30 DAYS: No - Related Data Allergies/Adverse Reactions: Iodinated Contrast- Oral and IV Dye [IV Dye, Iodine Containing] Allergy (Severe , Verified 08/07/14 16:24) Shortness of Breath Penicillins Allergy (Severe, Verified 08/07/14 16:24) shock Sulfa (Sulfonamide Antibiotics) Allergy (Severe, Verified 08/07/14 16:24) shock bee stings Allergy (Severe, Uncoded 08/07/14 16:24) Shortness of Breath fire ants Allergy (Severe, Uncoded 08/07/14 16:24) Shortness of Breath Past Medical History - Past Medical History Cardiac Medical History: Reports: Hx Heart Attack, Hx Hypertension Pulmonary Medical History: Reports: Hx Bronchitis Neurological Medical History: Reports: Hx Cerebrovascular Accident - Apr 2010-- right side deficits, Hx Seizures Renal/ Medical History: Reports: Hx Kidney Stones. Denies: Hx Peritoneal Dialysis GI Medical History: Musculoskeltal Medical History: Reports Hx Arthritis - RHEUMATIOD Psychiatric Medical History: Reports: Hx Depression Infectious Medical History: Past Surgical History: Reports: Hx Orthopedic Surgery - Right ankle surgery, right hip replacement. Denies: Hx Hysterectomy, Hx Mastectomy, Hx Open Heart Surgery - Immunizations Hx Diphtheria, Pertussis, Tetanus Vaccination: Yes Physical Exam - Vital signs Vitals: Temp Pulse Resp BP Pulse Ox 98.3 F 106 H 20 116/77 98 10/29/16 19:38 10/29/16 19:38 10/29/16 19:38 10/29/16 19:38 10/29/16 19:38 - Neurological [place] Coma Scale Eye Opening: Spontaneous [place] Coma Scale Verbal: Oriented Speech: Expressive aphasia Course - Re-evaluation Re-evalutation: 10/29/16 19:[address] Treadwell regarding patient triage level, patient's symptoms started at 10 AM. - Vital Signs Vital signs: Temp Pulse Resp BP Pulse Ox 98.3 F 106 H 20 116/77 98 10/29/16 19:38 10/29/16 19:38 10/29/16 19:38 10/29/16 19:38 10/29/16 19:38
[2016-10-29 20:21] LABS: PROTHROMBIN TIME 12.1 SEC (11.4-15.4)
[2016-10-29 20:22] LABS: PARTIAL THROMBOPLASTIN TIME 34.1 SEC (23.5-35.8)
[2016-10-29 20:23] LABS: ABSOLUTE BASOPHILS # (AUTO) 0.2 10^3/uL (0.0-0.2); ABSOLUTE EOSINOPHILS # (AUTO) 0.1 10^3/uL (0.0-0.6); ABSOLUTE LYMPHOCYTES (AUTO) 3.8 10^3/uL (0.5-4.7); ABSOLUTE NEUT (AUTO) 10.2 10^3/uL (1.7-8.2); BASOPHILS % (AUTO) 1.1 % (0-2); EOSINOPHILS % (AUTO) 0.6 % (0-6); HEMATOCRIT 37.2 % (36.0-47.0); HEMOGLOBIN 12.4 g/dL (12.0-15.5); LYMPHOCYTES % (AUTO) 25.2 % (13-45); MEAN CORPUSCULAR HEMOGLOBIN 35.1 pg (27.0-33.4); MEAN CORPUSCULAR HGB CONC 33.4 g/dL (32.0-36.0); MEAN CORPUSCULAR VOLUME 105 fl (80-97); MONOCYTES % (AUTO) 6.8 % (3-13); RED BLOOD COUNT 3.54 10^6/uL (3.72-5.28); RED CELL DISTRIBUTION WIDTH 12.5 % (11.5-14.0); SEGMENTED NEUTROPHILS % (AUTO) 66.3 % (42-78); WHITE BLOOD COUNT 15.3 10^3/uL (4.0-10.5)
--- NOTE | 2016-10-29 20:36 | RADIOLOGY REPORT (SQ) ---
EXAM DESCRIPTION: CHEST SINGLE VIEW COMPLETED DATE/TIME: 10/29/2016 8:09 pm REASON FOR STUDY: slurred speech COMPARISON: 09/21/2016 EXAM PARAMETERS: NUMBER OF VIEWS: One view. TECHNIQUE: Single frontal radiographic view of the chest acquired. RADIATION DOSE: NA LIMITATIONS: None. FINDINGS: LUNGS AND PLEURA: No acute opacities, masses or pneumothorax. No pleural effusion. MEDIASTINUM AND HILAR STRUCTURES: Stable. HEART AND VASCULAR STRUCTURES: Stable. BONES: No acute findings. HARDWARE: None in the chest. OTHER: No other significant finding. IMPRESSION: NO ACUTE RADIOGRAPHIC FINDING IN THE CHEST. TECHNICAL DOCUMENTATION: JOB ID: [id number]
--- NOTE | 2016-10-29 20:54 | RADIOLOGY REPORT (SQ) ---
EXAM DESCRIPTION: CT HEAD WITHOUT COMPLETED DATE/TIME: 10/29/2016 8:38 pm REASON FOR STUDY: slurred speech COMPARISON: 08/07/2013 TECHNIQUE: Axial images acquired through the brain without intravenous contrast. Images reviewed wi th bone, brain and subdural windows. Images stored on PACS. All CT scanners at this facility use dose modulation, iterative reconstruction, and/or weight based d osing when appropriate to reduce radiation dose to as low as reasonably achievable (ALARA). [facility]: Dose Right [facility]: CareDose [facility]: Dose Right [facility]: Teradose 4D [facility]: [facility] RADIATION DOSE: 64.61mGy. LIMITATIONS: None. FINDINGS: VENTRICLES: Prominent. CEREBRUM: No masses. No hemorrhage. No midline shift. Areas of low density in the white matter mos t likely due to chronic micro-vascular ischemic change. No evidence for acute infarction. CEREBELLUM: No masses. No hemorrhage. No alteration of density. No evidence for acute infarction. EXTRAAXIAL SPACES: Age-related involutional change. No fluid collections. No masses. ORBITS AND GLOBE: No intra- or extraconal masses. Normal contour of globe without masses. CALVARIUM: No fracture. PARANASAL SINUSES: No fluid or mucosal thickening. SOFT TISSUES: No mass or hematoma. OTHER: No other significant finding. IMPRESSION: CHRONIC CHANGES OF ATROPHY AND MICROVASCULAR ISCHEMIA. NO ACUTE PROCESS. TECHNICAL DOCUMENTATION: JOB ID: [id number] Quality ID # [id number]: Final reports with documentation of one or more dose reduction techniques (e.g., Au tomated exposure control, adjustment of the mA and/or kV according to patient size, use of iterative reconstruction technique) 2010 [employer]- All Rights Reserved
--- NOTE | 2016-10-29 23:57 | ER Document Report ---
ED General - General Chief Complaint: Slurred Speech Stated Complaint: SPEECH DIFFICULTY Time Seen by Provider: 10/29/16 19:50 Mode of Arrival: Medic Notes: Patient is a 66-year-old female who presents with difficulty talking as well as weakness in the right side. Patient is a history of previous stroke that left her with some left-sided weakness and some mildly slurred speech. On Saturday morning patient's family noticed that she was having much hard time talking and was unable to fully form words. Also been noticed that she was not moving her right leg much. These are all new symptoms for her. No recent fevers or infections. No recent trauma. The patient herself is unable to give me much information because she is unable to appropriately phonate what she wants to say. TRAVEL OUTSIDE OF THE [place] IN LAST 30 DAYS: No - Related Data Allergies/Adverse Reactions: Iodinated Contrast- Oral and IV Dye [IV Dye, Iodine Containing] Allergy (Severe , Verified 10/30/16 00:18) Shortness of Breath Penicillins Allergy (Severe, Verified 10/30/16 00:18) shock Sulfa (Sulfonamide Antibiotics) Allergy (Severe, Verified 10/30/16 00:18) shock bee stings Allergy (Severe, Uncoded 08/07/14 16:24) Shortness of Breath fire ants Allergy (Severe, Uncoded 08/07/14 16:24) Shortness of Breath Past Medical History - General Information source: Transfer Record - Social History Smoking Status: Unknown if Ever Smoked Frequency of alcohol use: None Drug Abuse: None Family History: Hyperlipidemia, Hypertension - Past Medical History Cardiac Medical History: Reports: Hx Heart Attack, Hx Hypertension Pulmonary Medical History: Reports: Hx Bronchitis Neurological Medical History: Reports: Hx Cerebrovascular Accident - Apr 2010-- right side deficits, Hx Seizures Renal/ Medical History: Reports: Hx Kidney Stones. Denies: Hx Peritoneal Dialysis GI Medical History: Musculoskeltal Medical History: Reports Hx Arthritis - RHEUMATIOD Psychiatric Medical History: Reports: Hx Depression Infectious Medical History: Past Surgical History: Reports: Hx Orthopedic Surgery - Right ankle surgery, right hip replacement. Denies: Hx Hysterectomy, Hx Mastectomy, Hx Open Heart Surgery - Immunizations Hx Diphtheria, Pertussis, Tetanus Vaccination: Yes Hx Pneumococcal Vaccination: 04/12/12 Review of Systems - Review of Systems -: Yes ROS unobtainable due to patient's medical condition - Patient unable to answer quesitons due to stroke. Physical Exam - Vital signs Vitals: Temp Pulse Resp BP Pulse Ox 98.3 F 106 H 20 116/77 98 10/29/16 19:38 10/29/16 19:38 10/29/16 19:38 10/29/16 19:38 10/29/16 19:38 - Notes Notes: General Appearance: Well nourished, alert, cooperative, no acute distress, no obvious discomfort. Vitals: reviewed, See vital signs table. Head: no swelling or tenderness to the head Eyes: PERRL, EOMI, Conjuctiva clear Mouth: No decreasd moisture Throat: No tonsillar inflammation, No airway obstruction, No lymphadenopathy Neck: Supple, no neck tenderness, No thyromegaly Lungs: No wheezing, No rales, No rhonci, No accessory muscle use, good air exchange bilaterally. Heart: Normal rate, Regular rythm, No murmur, no rub Abdomen: Normal BS, soft, No rigidity, No abdominal tenderness, No guarding, no rebound, no abdominal masses, no organomegaly Extremities: strength 5/5 in all extremities, good pulses in all extremities, no swelling or tenderness in the extremities, no edema. Skin: warm, dry, appropriate color, no rash Neuro:Patient is able to follow commands. Speech is very garbled and patient struggles to get words out. facial movements are equal bilaterally. Patient has chronc weakness on left side. 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 Patient has significant weakness of left lower extremity and is unale to lift left leg off of the bed. Course - Vital Signs Vital signs: Temp Pulse Resp BP Pulse Ox 98.3 F 83 14 123/64 98 10/29/16 19:38 10/30/16 00:30 10/30/16 02:01 10/30/16 02:01 10/30/16 02:01 - Laboratory Result Diagrams: 10/29/16 20:00 10/30/16 01:10 Laboratory results interpreted by me: 10/29/16 10/30/16 20:00 01:10 WBC 15.3 H RBC 3.54 L MCV 105 H MCH 35.1 H Absolute Neutrophils 10.2 H Potassium 5.1 H Direct Bilirubin 0.5 H Total Protein 8.8 H - EKG Interpretation by Me Additional EKG results interpreted by me: 10/29/16 23:57 EKG is reviewed and interpreted by me. EKG shows sinus tachycardia with a rate of [address] segment elevation or depression. No ischemic T-wave inversions. Occasional PVC. [place] interval, QRS duration, QTc intervals are within normal range. No old EKG available for comparison. - Transfer of Care Notes: 10/30/16 02:59 Maintain the same neurologic deficits since she has been here. Her new deficits in the last 48 hours included the worsening of the breathing as well as the right-sided weakness. I have given her an aspirin. She did pass her swallow screen. At that family friend at bedside and explained the plan of admitting her. They are agreeable to it. Patient will be admitted for further workup of her stroke. Dictation of this chart was performed using voice recognition software; therefore, there may be some unintended grammatical errors. Discharge - Discharge Clinical Impression: Stroke Qualifiers: CVA mechanism: unspecified Qualified Code(s): I63.9 - Cerebral infarction, unspecified Condition: Stable Disposition: ADMITTED INPATIENT Admitting Provider: Hospitalist Unit Admitted: Telemetry
[2016-10-30 01:40] LABS: ALANINE AMINOTRANSFERASE 9 U/L (9-52); ALBUMIN 3.9 g/dL (3.5-5.0); ALKALINE PHOSPHATASE 110 U/L (38-126); ANION GAP 15 (5-19); ASPARTATE AMINO TRANSFERASE 29 U/L (14-36); BILIRUBIN,DIRECT 0.5 mg/dL (0.0-0.4); BILIRUBIN,TOTAL 0.6 mg/dL (0.2-1.3); BLOOD UREA NITROGEN 13 mg/dL (7-20); CALCIUM 9.6 mg/dL (8.4-10.2); CARBON DIOXIDE 24 mmol/L (22-30); CHLORIDE 103 mmol/L (98-107); CREATININE RESULT 0.94 mg/dL (0.52-1.25); GLUCOSE 109 mg/dL (75-110); POTASSIUM 5.1 mmol/L (3.6-5.0); SODIUM 141.7 mmol/L (137-145); TOTAL PROTEIN 8.8 g/dL (6.3-8.2)
[2016-10-30] MEDS ORDERED: ASPIRIN 325 MG TABLET PO ONE (02:50)
[2016-10-30] MEDS ORDERED: GLUCAGON,HUMAN RECOMB 1 MG INJ SUBCUT PRN (08:32)
[2016-10-30] MEDS ORDERED: DEXTROSE 50%-WATER 25 GM/50 ML DISP.SYRIN IV PRN ×2 (08:32)
[2016-10-30] MEDS ORDERED: DEXTROSE 40% GEL 15 GM TUBE PO PRN ×2 (08:32)
[2016-10-30] MEDS ORDERED: ACETAMINOPHEN 650 MG SUPP.RECT PR PRN (08:42)
[2016-10-30] MEDS: ASPIRIN 300 MG SUPP, RECTAL PR SCH (09:00)
[2016-10-30] MEDS: DEXTROSE 5%-NORMAL SALINE 1,000 ML IV PRN (09:16)
[2016-10-30] MEDS: ENOXAPARIN SODIUM INJ 40 MG/0.4 ML DISP.SYRIN SUBCUT SCH (09:17)
[2016-10-30 10:03] LABS: ABSOLUTE BASOPHILS # (AUTO) 0.1 10^3/uL (0.0-0.2); ABSOLUTE EOSINOPHILS # (AUTO) 0.1 10^3/uL (0.0-0.6); ABSOLUTE LYMPHOCYTES (AUTO) 3.6 10^3/uL (0.5-4.7); ABSOLUTE MONOCYTES (AUTO) 0.7 10^3/uL (0.1-1.4); ABSOLUTE NEUT (AUTO) 5.1 10^3/uL (1.7-8.2); BASOPHILS % (AUTO) 0.6 % (0-2); EOSINOPHILS % (AUTO) 1.1 % (0-6); HEMOGLOBIN 11.2 g/dL (12.0-15.5); HGB HCT DIFFERENCE 0.6; LYMPHOCYTES % (AUTO) 37.6 % (13-45); MEAN CORPUSCULAR HEMOGLOBIN 35.8 pg (27.0-33.4); MEAN CORPUSCULAR HGB CONC 34.1 g/dL (32.0-36.0); MEAN CORPUSCULAR VOLUME 105 fl (80-97); MONOCYTES % (AUTO) 7.6 % (3-13); RED BLOOD COUNT 3.14 10^6/uL (3.72-5.28); RED CELL DISTRIBUTION WIDTH 12.8 % (11.5-14.0); SEGMENTED NEUTROPHILS % (AUTO) 53.1 % (42-78); WHITE BLOOD COUNT 9.6 10^3/uL (4.0-10.5)
--- NOTE | 2016-10-30 10:12 | PDOC H&P ---
History of Present Illness Admission Date/PCP: 10/30/16 08:32 Patient complains of: Speech difficulty History of Present Illness: EVERTON GAYTAN is a 66 year old female with prior stroke, which has left her with chronic right-sided hemiparesis and expressive dysphasia who presents to the emergency room for evaluation of above complaint. Patient has been discussed with emergency room physician who evaluated the patient. Patient has rather prominent expressive dysphasia, and seems intermittently somewhat confused, and is able to provide no history whatsoever in terms of acute or chronic events, review of systems, personal habits, family history, etc. No friends or family are present. Old inpatient records are reviewed. Yesterday morning, family reportedly noticed that patient was having a more difficult time talking than usual, unable to fully form words. Also noted to be using her right lower extremity less than usual. No recent fever or infections. No recent trauma. No further information available this point in time. Hospitalized on our service basically overnight the and of last month with final diagnoses including chest pain, rule out myocardial infarction. History and physical and discharge summary have been reviewed.. Laboratory results are listed in [employer] and are reviewed. X-ray summary results are listed below, with full report(s) reviewed. . Social history/personal habits: No information available this point in time. Allergies/adverse reactions are listed in [employer] and are reviewed. Home medications initially autopopulated into [employer] may not accurately reflect patient's true medications, dosages, and/or frequencies. aeronautical engineering technologist to reconcile medications. Unfortunately, patient not able to provide any information related to medications/dosages/frequencies. REVIEW OF SYSTEMS: See history and present illness. No further information available this point in time. PHYSICAL EXAMINATION: 66.1 kg. Height is not recorded on the chart. Blood pressure 128/59. Pulse 73 and regular. 100% saturation on room air. Respirations are 12 and unlabored. Temperature 98.5. Thin chronically ill-appearing female who appears a number of years older than her stated age. Awake alert pleasant and cooperative. Somewhat anxious. Intermittently interacts somewhat poorly with her surroundings. Female emergency room nurse Doreen is present. Skin is warm and dry. No grossly obvious evidence of rash in areas of skin examined. No subcutaneous nodules palpated. ENT: Hearing grossly normal to normal conversation. Eyes: No scleral icterus. Pupils equal and reactive to light at [address] [place] conjunctivae. Neck is nontender to palpation. Midline trachea. No palpable thyroid nodule mass enlargement or tenderness. Lymphatic: No palpable cervical or clavicular nodes. Neck and lymphatic exams limited by patient body habitus. Psychiatric: Cannot be adequately determined due to her current status. See above. Lungs: Auscultation reveals clear and equal breath sounds bilaterally. No use of accessory respiratory muscles. Cardiovascular: Heart regular rate and rhythm, without gallop murmur or rub. No carotid or abdominal aortic bruits. No ankle or pedal edema. Faintly palpable dorsalis pedis pulses. Abdomen:soft slightly distended nontender with positive bowel sounds. Unable to adequately evaluate abdomen for masses or organomegaly due to distention. Extremities: Feet are warm and dry. No calf tenderness to compression. No grossly obvious visual evidence of calf swelling. Gentle manipulation of lower extremities fails to reveal any obvious evidence of injury or instability to knees hips or ankles. Neurologic: Cranial Nerves II through XII cannot be adequately evaluated since patient does not follow all basic requests during evaluation. Light touch cannot be adequately evaluated due to her current status. Motor function of major muscle groups left upper and bilateral lower extremities 5 over 5. Handgrip, and bicep function on the right 4/5. Patellar reflexes absent. Absent Babinski. No nystagmus. Past Medical History Past Medical History: Information from old records; patient unable to provide any information herself. Cardiac Medical History: Reports: Myocardial Infarction, Hypertension Pulmonary Medical History: Reports: Bronchitis Neurological Medical History: Reports: Ischemic CVA, Seizures GI Medical History: Musculoskeltal Medical History: Reports: Arthritis - RHEUMATIOD Psychiatric Medical History: Reports: Depression Hematology: Denies: Anemia, Sickle Cell Disease Past Surgical History Past Surgical History: Information per old records; patient unable to provide any information herself. Past Surgical History: Reports: Orthopedic Surgery - Right ankle surgery, right hip replacement Denies: Amputation, Hysterectomy, Mastectomy Social History Information Source: Emergency Med Personnel, [facility] Records Smoking Status: Unknown if Ever Smoked Frequency of Alcohol Use: None Hx Recreational Drug Use: No Drugs: None Hx Prescription Drug Abuse: No - Advance Directive Resuscitation Status: Full Code Surrogate healthcare decision maker:: Uncertain Family History Family History: Hyperlipidemia, Hypertension Parental Family History Reviewed: No - Patient not able to provide any information herself. Children Family History Reviewed: No - Patient not able to provide any information herself. Sibling(s) Family History Reviewed.: No - Patient not able to provide any information herself. Medication/Allergy Home Medications: Buspirone HCl [Buspar 30 mg Tablet] 30 mg PO Q12 10/30/16 Carisoprodol [Soma 350 Mg Tablet] 350 mg PO QID 10/30/16 Cyproheptadine HCl [Periactin 4 Mg Tablet] 4 mg PO BID 10/30/16 Morphine Sulfate [Morphine Sulfate ER] 15 mg PO Q12 10/30/16 Prednisone [Deltasone 1 mg Tablet] 1 mg PO BID 10/30/16 RX: Duloxetine HCl 30 mg PO Q12 10/30/16 RX: Omeprazole 20 mg PO DAILY 10/30/16 RX: Oxycodone HCl 15 mg PO QID 10/30/16 Allergies/Adverse Reactions: Iodinated Contrast- Oral and IV Dye [IV Dye, Iodine Containing] Allergy (Severe , Verified 10/30/16 00:18) Shortness of Breath Penicillins Allergy (Severe, Verified 10/30/16 00:18) shock Sulfa (Sulfonamide Antibiotics) Allergy (Severe, Verified 10/30/16 00:18) shock bee stings Allergy (Severe, Uncoded 08/07/14 16:24) Shortness of Breath fire ants Allergy (Severe, Uncoded 08/07/14 16:24) Shortness of Breath Physical Exam Vital Signs: Temp Pulse Resp BP Pulse Ox 98.5 F 66 11 L 105/55 L 98 10/30/16 05:00 10/30/16 09:20 10/30/16 09:20 10/30/16 09:20 10/30/16 09:20 Results Impressions: Chest X-Ray 10/29/16 19:50 IMPRESSION: NO ACUTE RADIOGRAPHIC FINDING IN THE CHEST. Head CT 10/29/16 19:50 IMPRESSION: CHRONIC CHANGES OF ATROPHY AND MICROVASCULAR ISCHEMIA. NO ACUTE PROCESS. Assessment & Plan - Diagnosis (1) Acute focal neurological deficit Is this a current diagnosis for this admission?: YesPlan: Patient will be admitted under CVA/TIA protocol. Multiple imaging procedures, intracranial, vascular, and cardiac. lipid panel. Permissive hypertension. Patient is a full code. I have strongly urged patient not to get out of bed , to avoid a fall with injury. Knee high SCDs for DVT prophylaxis, along with subcutaneous Lovenox. Impression and plans were discussed with patient. Time spent in evaluation and management of patient: 57 minutes (2) Hyperkalemia Is this a current diagnosis for this admission?: YesPlan: Follow-up chemistry. (3) Expressive dysphasia Is this a current diagnosis for this admission?: Yes (4) Hemiparesis affecting right side as late effect of cerebrovascular accident Is this a current diagnosis for this admission?: Yes (5) DVT prophylaxis Is this a current diagnosis for this admission?: Yes - Inpatient Certification Based on my medical assessment, after consideration of the patient's comorbidities, presenting symptoms, or acuity I expect that the services needed warrant INPATIENT care.: Yes I certify that my determination is in accordance with my understanding of Medicare's requirements for reasonable and necessary INPATIENT services [42 CFR 412.3e].: Yes Medical Necessity: Need Close Monitoring Due to Risk of Patient Decompensation, Need For IV Fluids, Need for Neurological Checks, Risk of Complication if Not Cared For in Hospital Post Hospital Care: D/C or Transfer Summary
[2016-10-30 10:24] LABS: ANION GAP 13 (5-19); BLOOD UREA NITROGEN 13 mg/dL (7-20); CALCIUM 9.4 mg/dL (8.4-10.2); CARBON DIOXIDE 26 mmol/L (22-30); CHLORIDE 102 mmol/L (98-107); CHOLESTEROL 195.82 mg/dL (0-200); Direct HDL 42 mg/dL (>40); GLUCOSE 90 mg/dL (75-110); SODIUM 140.5 mmol/L (137-145); TRIGLYCERIDES 158 mg/dL (<150)
[2016-10-30 10:35] LABS: DIRECT LDL 117 mg/dL (<100)
[2016-10-30 10:36] LABS: VLDL CHOLESTEROL 31.6 mg/dL (10-31)
[2016-10-30 10:43] LABS: POTASSIUM 3.9 mmol/L (3.6-5.0)
--- NOTE | 2016-10-30 11:25 | PDOC PROGRESS REPORT ---
Subjective Progress Note for:: 10/30/16 Subjective:: Patient is confused but denies any complaints. Physical Exam Vital Signs: Temp Pulse Resp BP Pulse Ox 98.5 F 66 11 L 105/55 L 98 10/30/16 05:00 10/30/16 09:20 10/30/16 09:20 10/30/16 09:20 10/30/16 09:20 General appearance: PRESENT: no acute distress Eye exam: PRESENT: conjunctiva pink. ABSENT: scleral icterus Mouth exam: PRESENT: moist, tongue midline Neck exam: ABSENT: JVD Respiratory exam: PRESENT: clear to auscultation steve. ABSENT: rales, rhonchi, wheezes Cardiovascular exam: PRESENT: RRR. ABSENT: diastolic murmur, rubs, systolic murmur Pulses: PRESENT: normal dorsalis pedis pul Vascular exam: PRESENT: normal capillary refill GI/Abdominal exam: PRESENT: normal bowel sounds, soft. ABSENT: distended, guarding, mass, organolmegaly, rebound, tenderness Extremities exam: ABSENT: calf tenderness, clubbing, pedal edema Neurological exam: PRESENT: awake, motor sensory deficit - Patient has expressive aphasia and has weakness in the upper extremity 4 out of 5 Psychiatric exam: PRESENT: flat affect Skin exam: PRESENT: dry, intact, warm. ABSENT: cyanosis, rash Results Laboratory Results: 10/30/16 09:38 10/30/16 09:38 10/30/16 10/30/16 09:38 09:38 WBC 9.6 RBC 3.14 L Hgb 11.2 L Hct 33.0 L MCV 105 H MCH 35.8 H MCHC 34.1 RDW 12.8 Plt Count 318 Seg Neutrophils % 53.1 Lymphocytes % 37.6 Monocytes % 7.6 Eosinophils % 1.1 Basophils % 0.6 Absolute Neutrophils 5.1 Absolute Lymphocytes 3.6 Absolute Monocytes 0.7 Absolute Eosinophils 0.1 Absolute Basophils 0.1 Sodium 140.5 Potassium 3.9 D Chloride 102 Carbon Dioxide 26 Anion Gap 13 BUN 13 Creatinine 0.90 Est GFR ( Amer) > 60 Est GFR (Non-Af Amer) > 60 Glucose 90 Calcium 9.4 Triglycerides 158 H Cholesterol 195.82 LDL Cholesterol Direct 117 H VLDL Cholesterol 31.6 H HDL Cholesterol 42 10/30/16 09:38 Troponin I < 0.012 Impressions: Chest X-Ray 10/29/16 19:50 IMPRESSION: NO ACUTE RADIOGRAPHIC FINDING IN THE CHEST. Head CT 10/29/16 19:50 IMPRESSION: CHRONIC CHANGES OF ATROPHY AND MICROVASCULAR ISCHEMIA. NO ACUTE PROCESS. Assessment & Plan - Diagnosis (1) Stroke Qualifiers: CVA mechanism: unspecified Qualified Code(s): I63.9 - Cerebral infarction, unspecified Is this a current diagnosis for this admission?: YesPlan: Has a history of expressive aphasia as well as reported right hemiparesis. The patient has weakness on her left and has expressive aphasia. It is not clear how much of this is old and how much this is new. The patient does have a history of have any previous CVA. Patient is scheduled for an MRI, carotid Doppler, echocardiogram. Will continue with aspirin and neurological exams (2) Essential hypertension Is this a current diagnosis for this admission?: YesPlan: Pressure is stable off of medications. (3) Hyperlipidemia Qualifiers: Hyperlipidemia type: unspecified Qualified Code(s): E78.5 - Hyperlipidemia, unspecified Is this a current diagnosis for this admission?: YesPlan: We will start on Lipitor. - Time Time Spent with patient: 15-24 minutes - Plan Summary Plan Summary: Await results of the echocardiogram, carotid Dopplers, MRI.
--- NOTE | 2016-10-30 15:50 | RADIOLOGY REPORT (SQ) ---
EXAM DESCRIPTION: CAROTID DOPPLER COMPLETED DATE/TIME: 10/30/2016 3:19 pm REASON FOR STUDY: TIA VS CVA COMPARISON: None. TECHNIQUE: Grayscale ultrasound, Doppler velocity and spectra, and color Doppler images acquired of the extra-cranial carotid and vertebral arteries. Images stored on PACS. LIMITATIONS: Limited patient cooperation FINDINGS: RIGHT CAROTID CCA Velocities: Within normal limits. ICA Velocities Peak systolic 0.85 m/s. End diastolic 0.21 m/s. Proximal ICA/CCA peak systolic ratio 1.6. Mixed calcific and noncalcific plaque is present at the right carotid bifurcation. Turbulent flow. Velocities immediately distal to the plaque are normal, suggesting against flow significant stenosis. LEFT CAROTID CCA Velocities: Within normal limits. ICA Velocities Peak systolic 0.93 m/s. End diastolic 0.29 m/s. Proximal ICA/CCA peak systolic ratio 1.5. Mixed calcific and noncalcific plaque is present at the left carotid bifurcation. Turbulent flow. V elocities immediately distal to the plaque are normal, suggesting against flow significant stenosis VERTEBRAL ARTERIES: Antegrade flow. Normal waveforms. SUBCLAVIAN ARTERIES: Not examined OTHER: No other significant finding. IMPRESSION: Calcific plaque at both carotid bifurcations Right and left ICA velocities just distal to the shadowing plaque suggest against flow significant st enosis COMMENT: Quality ID #[id number]: Velocity criteria are extrapolated from the diameter data as defined by t he Society of Radiologists in Ultrasound Consensus Conference. Radiology 2003: 229; 340-346. TECHNICAL DOCUMENTATION: JOB ID: [id number] [employer]- All Rights Reserved
--- NOTE | 2016-10-30 17:02 | EKG REPORT ---
SEVERITY:- ABNORMAL ECG - SINUS TACHYCARDIA MULTIPLE VENTRICULAR PREMATURE COMPLEXES LEFT AXIS DEVIATION LOW VOLTAGE IN FRONTAL LEADS : Confirmed by: Gita Mora MD 30-Oct-2016 17:02:18
--- NOTE | 2016-10-30 18:46 | XCELERA REPORT ---
[address] [address] Transthoracic Echocardiogram Report Name: EVERTON GAYTAN Age: 66 yrs Gender: Female : 1950 Patient Status: Inpatient Patient Location: \S\[facility]\S\A Study Date: 10/30/2016 01:34 PM Height: 62 in Weight: 145 lb BSA: 1.7 m2 Procedure: A complete two-dimensional transthoracic echocardiogram was performed (2D, M-mode, spectral and color flow Doppler). The study was technically difficult with many images being suboptimal in quality. Reason For Study: TIA VS CVA Ordering Physician: VASYL LOPEZ Performed By: Sania Sher Interpretation Summary The left ventricular ejection fraction is normal. There is borderline concentric left ventricular hypertrophy. Doppler measurements suggest impaired left ventricular relaxation, which is associated with grade I/IV or mild diastolic dysfunction The left ventricle is grossly normal size. Regional wall motion abnormalities cannot be excluded due to limited visualization. The right ventricular systolic function is normal. The right atrium is normal in size The left atrium is mildly dilated. There is no mitral valve stenosis. There is a trace to mild amount of mitral regurgitation There is no aortic valve stenosis No aortic regurgitation is present. There is a trace or physiologic amount of tricuspid regurgitation Tricuspid regurgitation jet envelope not well defined to measure RV systolic pressure accurately. The aortic root is not well visualized but is probably normal size. The inferior vena cava was not visualized There is no pericardial effusion. MMode/2D Measurements \T\ Calculations RVDd: 2.3 cm LVIDd: 4.6 cm FS: 42.2 % Ao root diam: 2.8 cm IVSd: 0.82 cm LVIDs: 2.7 cm EDV(Teich): 98.5 ml LVPWd: 0.94 cm ESV(Teich): 26.4 ml Ao root area: 6.1 cm2 EF(Teich): 73.2 % LA dimension: 3.9 cm Doppler Measurements \T\ Calculations MV E max harrison: MV P1/2t max harrison: Ao V2 max: LV V1 max P.1 cm/sec 68.1 cm/sec 136.5 cm/sec 3.4 mmHg MV A max harrison: MV P1/2t: 95.6 msec Ao max PG: LV V1 max: 109.6 cm/sec 7.5 mmHg 91.8 cm/sec MV E/A: 0.61 MVA(P1/2t): 2.3 cm2 MV dec slope: 208.7 cm/sec2 MV dec time: 0.33 sec PA V2 max: TR max harrison: 89.3 cm/sec 212.8 cm/sec PA max P.2 mmHgTR max P.1 mmHg Left Ventricle The left ventricle is grossly normal size. There is borderline concentric left ventricular hypertrophy. The left ventricular ejection fraction is normal. Doppler measurements suggest impaired left ventricular relaxation, which is associated with grade I/IV or mild diastolic dysfunction. Regional wall motion abnormalities cannot be excluded due to limited visualization. Right Ventricle The right ventricle is grossly normal size. There is normal right ventricular wall thickness. The right ventricular systolic function is normal. Atria The right atrium is normal in size. The left atrium is mildly dilated. Interarterial septum not well visualized and not well dopplered. Cannot comment on ASD/PFO presence. Mitral Valve The mitral valve is grossly normal. There is no mitral valve stenosis. There is a trace to mild amount of mitral regurgitation. Aortic Valve The aortic valve is not well visualized secondary to technical limitations. There is no aortic valve stenosis. No aortic regurgitation is present. Tricuspid Valve The tricuspid valve is not well visualized secondary to technical limitations. There is no tricuspid stenosis. There is a trace or physiologic amount of tricuspid regurgitation. Tricuspid regurgitation jet envelope not well defined to measure RV systolic pressure accurately. Pulmonic Valve The pulmonic valve is not well visualized. Great Vessels The aortic root is not well visualized but is probably normal size. The inferior vena cava was not visualized. Effusions There is no pericardial effusion. : VASYL LOPEZ > Cassandra Maravilla
[2016-10-30 19:34] LABS: APPEARANCE,URINE TURBID; BILIRUBIN,URINE NEGATIVE (NEGATIVE); GLUCOSE, URINE NEGATIVE (NEGATIVE); KETONES,URINE TRACE mg/dL (NEGATIVE); LEUKOCYTE ESTERASE,URINE LARGE (NEGATIVE); NITRITE,URINE NEGATIVE (NEGATIVE); PROTEIN,URINE 30 mg/dL (NEGATIVE); UROBILINOGEN,URINE NEGATIVE mg/dL (<2.0)
--- NOTE | 2016-10-30 21:23 | RADIOLOGY REPORT (SQ) ---
EXAM DESCRIPTION: MRI HEAD WITHOUT COMPLETED DATE/TIME: 10/30/2016 9:04 pm REASON FOR STUDY: TIA VS CVA COMPARISON: CT brain dated 10/29/2016 MRI brain dated 08/11/2013 TECHNIQUE: Multiplanar imaging includes non-contrasted T1, T2, FLAIR, and diffusion with ADC map seq uences. Images stored on PACS. LIMITATIONS: The study is limited by motion artifact. FINDINGS: ANATOMY: No anomalies. Normal vascular flow voids. Pituitary fossa normal. CSF SPACES: Atrophy induced prominence of ventricles and CSF spaces. CEREBRUM: High signal intensity lesions scattered throughout the white matter on FLAIR imaging with d istribution suggesting micro-vascular ischemic changes. No evidence of hemorrhage, mass, or extraaxi al fluid collection. POSTERIOR FOSSA: There is abnormal diffusion noted in the right cerebellar peduncle in the inferior r ight cerebellar hemisphere. This is consistent with acute infarct. DIFFUSION IMAGING: Negative for acute or sub-acute infarction. ORBITS: No masses. Globes normal. PARANASAL SINUSES: No fluid levels. Mucosa normal. OTHER: No other significant finding. IMPRESSION: 1. Generalized atrophy and small-vessel ischemic changes. 2. Abnormal diffusion in the right cerebellar peduncle and inferior right cerebellar hemisphere cons istent with acute nonhemorrhagic infarct. COMMENT: This report was called to Dr. Redd At21:12 on 10/30/2016. The initial call was not answ ered. The paging anvil seating press operator will continue to reach him. TECHNICAL DOCUMENTATION: JOB ID: [id number] [employer]- All Rights Reserved
--- NOTE | 2016-10-30 21:27 | RADIOLOGY REPORT (SQ) ---
EXAM DESCRIPTION: MRA HEAD WITHOUT COMPLETED DATE/TIME: 10/30/2016 9:04 pm REASON FOR STUDY: TIA VS CVA COMPARISON: None. TECHNIQUE: Axial 3-D [id number] acquisition imaging performed through the brain in the area of t he [place] of [place]. Images reformatted using 3-D MIPS. LIMITATIONS: None. FINDINGS: SOURCE IMAGES: No unexpected findings on source images. No large masses. 3-D MIP: No aneurysm. No occlusions. No significant stenosis. OTHER: No other significant finding. IMPRESSION: NORMAL MRA OF THE [place]. TECHNICAL DOCUMENTATION: JOB ID: [id number] [employer]- All Rights Reserved
[2016-10-31] MEDS: ATORVASTATIN CALCIUM 40 MG TABLET PO SCH ×2 (01:27→22:08)
[2016-10-31] MEDS: DEXTROSE 5%-NORMAL SALINE 1,000 ML IV PRN (02:12)
[2016-10-31] MEDS: ACETAMINOPHEN 325 MG TABLET PO PRN ×3 (04:03→22:14)
[2016-10-31 06:43] LABS: ABSOLUTE BASOPHILS # (AUTO) 0.1 10^3/uL (0.0-0.2); ABSOLUTE MONOCYTES (AUTO) 0.6 10^3/uL (0.1-1.4); BASOPHILS % (AUTO) 0.6 % (0-2); EOSINOPHILS % (AUTO) 0.5 % (0-6); HEMATOCRIT 34.7 % (36.0-47.0); HEMOGLOBIN 11.8 g/dL (12.0-15.5); HGB HCT DIFFERENCE 0.7; LYMPHOCYTES % (AUTO) 34.2 % (13-45); MEAN CORPUSCULAR VOLUME 103 fl (80-97); MONOCYTES % (AUTO) 7.2 % (3-13); RED BLOOD COUNT 3.37 10^6/uL (3.72-5.28); RED CELL DISTRIBUTION WIDTH 12.6 % (11.5-14.0); SEGMENTED NEUTROPHILS % (AUTO) 57.5 % (42-78); WHITE BLOOD COUNT 8.8 10^3/uL (4.0-10.5)
[2016-10-31 06:55] LABS: ANION GAP 14 (5-19); BLOOD UREA NITROGEN 9 mg/dL (7-20); CALCIUM 9.5 mg/dL (8.4-10.2); CARBON DIOXIDE 22 mmol/L (22-30); CHLORIDE 107 mmol/L (98-107); CREATININE RESULT 0.82 mg/dL (0.52-1.25); GLUCOSE 95 mg/dL (75-110); POTASSIUM 3.8 mmol/L (3.6-5.0); SODIUM 142.6 mmol/L (137-145)
[2016-10-31] MEDS: ENOXAPARIN SODIUM INJ 40 MG/0.4 ML DISP.SYRIN SUBCUT SCH (10:13)
[2016-10-31] MEDS: CIPROFLOXACIN HCL 500 MG TABLET PO SCH ×2 (10:16→22:08)
--- NOTE | 2016-10-31 11:49 | PDOC PROGRESS REPORT ---
Subjective Progress Note for:: 10/31/16 Subjective:: Patient is confused but denies any complaints. Speech is improved Physical Exam Vital Signs: Temp Pulse Resp BP Pulse Ox 98.1 F 69 16 135/79 H 98 10/31/16 07:17 10/31/16 07:17 10/31/16 07:17 10/31/16 07:17 10/31/16 07:17 Intake & Output 10/30/16 10/31/16 11/01/16 06:59 06:59 06:59 Intake Total 360 Balance 360 Weight 64.4 kg General appearance: PRESENT: no acute distress Eye exam: PRESENT: conjunctiva pink. ABSENT: scleral icterus Mouth exam: PRESENT: moist, tongue midline Neck exam: ABSENT: JVD Respiratory exam: PRESENT: clear to auscultation steve. ABSENT: rales, rhonchi, wheezes Cardiovascular exam: PRESENT: RRR. ABSENT: diastolic murmur, rubs, systolic murmur GI/Abdominal exam: PRESENT: normal bowel sounds, soft. ABSENT: distended, guarding, mass, organolmegaly, rebound, tenderness Extremities exam: ABSENT: calf tenderness, clubbing, pedal edema Neurological exam: PRESENT: awake, oriented to person, oriented to place, other - Patient's aphasia has improved.. ABSENT: oriented to time, oriented to situation Psychiatric exam: PRESENT: flat affect Skin exam: PRESENT: dry, intact, warm. ABSENT: cyanosis, rash Results Laboratory Results: 10/31/16 06:14 10/31/16 06:14 10/30/16 10/31/16 10/31/16 18:50 06:14 06:14 WBC 8.8 RBC 3.37 L Hgb 11.8 L Hct 34.7 L MCV 103 H MCH 35.0 H MCHC 34.0 RDW 12.6 Plt Count 314 Seg Neutrophils % 57.5 Lymphocytes % 34.2 Monocytes % 7.2 Eosinophils % 0.5 Basophils % 0.6 Absolute Neutrophils 5.0 Absolute Lymphocytes 3.0 Absolute Monocytes 0.6 Absolute Eosinophils 0.0 Absolute Basophils 0.1 Sodium 142.6 Potassium 3.8 Chloride 107 Carbon Dioxide 22 Anion Gap 14 BUN 9 Creatinine 0.82 Est GFR ( Amer) > 60 Est GFR (Non-Af Amer) > 60 Glucose 95 Calcium 9.5 Urine Color YELLOW Urine Appearance TURBID Urine pH 5.0 Ur Specific [place] 1.010 Urine Protein 30 H Urine Glucose (UA) NEGATIVE Urine Ketones TRACE H Urine Blood NEGATIVE Urine Nitrite NEGATIVE Ur Leukocyte Esterase LARGE H Urine WBC (Auto) >182 Urine RBC (Auto) 63 10/30/16 09:38 Troponin I < 0.012 Impressions: Chest X-Ray 10/29/16 19:50 IMPRESSION: NO ACUTE RADIOGRAPHIC FINDING IN THE CHEST. Head CT 10/29/16 19:50 IMPRESSION: CHRONIC CHANGES OF ATROPHY AND MICROVASCULAR ISCHEMIA. NO ACUTE PROCESS. Head MRI 10/30/16 00:00 IMPRESSION: 1. Generalized atrophy and small-vessel ischemic changes. 2. Abnormal diffusion in the right cerebellar peduncle and inferior right cerebellar hemisphere consistent with acute nonhemorrhagic infarct. Brain MRI with MRA 10/30/16 08:39 IMPRESSION: NORMAL MRA OF THE [place]. Carotid Doppler Study 10/30/16 08:39 IMPRESSION: Calcific plaque at both carotid bifurcations Right and left ICA velocities just distal to the shadowing plaque suggest against flow significant stenosis Assessment & Plan - Diagnosis (1) Stroke Qualifiers: CVA mechanism: unspecified Qualified Code(s): I63.9 - Cerebral infarction, unspecified Is this a current diagnosis for this admission?: YesPlan: Has a history of expressive aphasia as well as reported right hemiparesis. The patient has weakness on her left and has expressive aphasia. MRI does confirm an acute CVA. Continue with PT, OT, aspirin. Will consult discharge planning for rehab placement. (2) Essential hypertension Is this a current diagnosis for this admission?: YesPlan: Pressure is stable off of medications. (3) Hyperlipidemia Qualifiers: Hyperlipidemia type: unspecified Qualified Code(s): E78.5 - Hyperlipidemia, unspecified Is this a current diagnosis for this admission?: YesPlan: Continue Lipitor. - Time Time Spent with patient: 25-34 minutes - Inpatient Certification Medical Necessity: Need Close Monitoring Due to Risk of Patient Decompensation
[2016-10-31] MEDS: ASPIRIN 300 MG SUPP, RECTAL PR SCH (13:47)
--- NOTE | 2016-10-31 15:12 | Physician Advisory Note ---
Physician Advisor ProgressNote .: [facility] medical [facility] for this patient. Physician Advisor Statement: Nice documentation of chronic Rt hemiparesis due to previous CVA. Please consider documentin. "Acute Rt-sided thrombotic [or embolic, or other etiology] ___ artery* CVA with cerebral infarction, with Lt nondominant hemiparesis, [resolved or improved or persistent] " *Ant/middle/post cerebral , sup cerebellar, or ant/post inf cerebellar artery? 2. "Atherosclerotic cerebrovascular dz" Thanks! CK
[2016-11-01] MEDS: CIPROFLOXACIN HCL 500 MG TABLET PO SCH (10:22)
[2016-11-01] MEDS: OXYCODONE HCL IR 5 MG TABLET PO PRN ×3 (10:23→21:47)
[2016-11-01] MEDS: ENOXAPARIN SODIUM INJ 40 MG/0.4 ML DISP.SYRIN SUBCUT SCH (10:23)
[2016-11-01] MEDS: ASPIRIN 325 MG TABLET PO SCH (10:23)
--- NOTE | 2016-11-01 12:31 | PDOC PROGRESS REPORT ---
Subjective Progress Note for:: 11/01/16 Subjective:: Patient is confused and complains of back pain. Physical Exam Vital Signs: Temp Pulse Resp BP Pulse Ox 98.1 F 85 16 146/82 H 100 11/01/16 07:46 11/01/16 08:00 11/01/16 08:00 11/01/16 08:00 11/01/16 08:00 Intake & Output 10/31/16 11/01/16 11/02/16 06:59 06:59 06:59 Intake Total 360 1482 Balance 360 1482 Weight 64.4 kg 65.9 kg General appearance: PRESENT: no acute distress Eye exam: PRESENT: conjunctiva pink. ABSENT: scleral icterus Mouth exam: PRESENT: moist, tongue midline Neck exam: ABSENT: carotid bruit, JVD, lymphadenopathy, thyromegaly Respiratory exam: PRESENT: clear to auscultation steve. ABSENT: rales, rhonchi, wheezes Cardiovascular exam: PRESENT: RRR. ABSENT: diastolic murmur, rubs, systolic murmur GI/Abdominal exam: PRESENT: normal bowel sounds, soft. ABSENT: distended, guarding, mass, organolmegaly, rebound, tenderness Extremities exam: ABSENT: calf tenderness, clubbing, pedal edema Neurological exam: PRESENT: alert, awake, oriented to person, oriented to place , motor sensory deficit - Mild weakness of the left upper extremity.. ABSENT: oriented to time, oriented to situation Psychiatric exam: PRESENT: flat affect Skin exam: PRESENT: dry, intact, warm. ABSENT: cyanosis, rash Results Laboratory Results: 10/31/16 06:14 10/31/16 06:14 10/30/16 09:38 Troponin I < 0.012 Impressions: Chest X-Ray 10/29/16 19:50 IMPRESSION: NO ACUTE RADIOGRAPHIC FINDING IN THE CHEST. Head CT 10/29/16 19:50 IMPRESSION: CHRONIC CHANGES OF ATROPHY AND MICROVASCULAR ISCHEMIA. NO ACUTE PROCESS. Head MRI 10/30/16 00:00 IMPRESSION: 1. Generalized atrophy and small-vessel ischemic changes. 2. Abnormal diffusion in the right cerebellar peduncle and inferior right cerebellar hemisphere consistent with acute nonhemorrhagic infarct. Brain MRI with MRA 10/30/16 08:39 IMPRESSION: NORMAL MRA OF THE [place] OF [place]. Carotid Doppler Study 10/30/16 08:39 IMPRESSION: Calcific plaque at both carotid bifurcations Right and left ICA velocities just distal to the shadowing plaque suggest against flow significant stenosis Assessment & Plan - Diagnosis (1) Stroke Qualifiers: CVA mechanism: unspecified Qualified Code(s): I63.9 - Cerebral infarction, unspecified Is this a current diagnosis for this admission?: YesPlan: Has a history of expressive aphasia as well as reported right hemiparesis. The patient has weakness on her left and has expressive aphasia. MRI does confirm an acute CVA. 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 She also has atherosclerotic cerebrovascular disease. Continue with PT, OT, aspirin. Will consult discharge planning for rehab placement. (2) Essential hypertension Is this a current diagnosis for this admission?: YesPlan: Pressure is stable off of medications. (3) Hyperlipidemia Qualifiers: Hyperlipidemia type: unspecified Qualified Code(s): E78.5 - Hyperlipidemia, unspecified Is this a current diagnosis for this admission?: YesPlan: Continue Lipitor. - Time Time Spent with patient: 25-34 minutes - Inpatient Certification Medical Necessity: Need Close Monitoring Due to Risk of Patient Decompensation - Plan Summary Plan Summary: She will be stable for discharge when a rehabilitation bed is available
[2016-11-01] MEDS ORDERED: NORMAL SALINE 500 ML IV ONE (18:30)
[2016-11-01] MEDS ORDERED: NORMAL SALINE 1000 ML 1,000 ML IV ONE (20:56)
[2016-11-01 21:17] LABS: ABSOLUTE BASOPHILS # (AUTO) 0.1 10^3/uL (0.0-0.2); ABSOLUTE LYMPHOCYTES (AUTO) 2.4 10^3/uL (0.5-4.7); ABSOLUTE MONOCYTES (AUTO) 1.3 10^3/uL (0.1-1.4); ABSOLUTE NEUT (AUTO) 13.4 10^3/uL (1.7-8.2); BASOPHILS % (AUTO) 0.4 % (0-2); EOSINOPHILS % (AUTO) 0.1 % (0-6); HEMOGLOBIN 13.1 g/dL (12.0-15.5); HGB HCT DIFFERENCE -0.7; LYMPHOCYTES % (AUTO) 13.9 % (13-45); MEAN CORPUSCULAR HEMOGLOBIN 34.2 pg (27.0-33.4); MEAN CORPUSCULAR HGB CONC 32.8 g/dL (32.0-36.0); MEAN CORPUSCULAR VOLUME 104 fl (80-97); MONOCYTES % (AUTO) 7.7 % (3-13); RED BLOOD COUNT 3.84 10^6/uL (3.72-5.28); RED CELL DISTRIBUTION WIDTH 12.6 % (11.5-14.0); SEGMENTED NEUTROPHILS % (AUTO) 77.9 % (42-78); WHITE BLOOD COUNT 17.1 10^3/uL (4.0-10.5)
[2016-11-01] MEDS: ATORVASTATIN CALCIUM 40 MG TABLET PO SCH (21:37)
[2016-11-01 21:38] LABS: ANION GAP 16 (5-19); BLOOD UREA NITROGEN 9 mg/dL (7-20); CALCIUM 9.8 mg/dL (8.4-10.2); CARBON DIOXIDE 24 mmol/L (22-30); CHLORIDE 103 mmol/L (98-107); CREATININE RESULT 0.82 mg/dL (0.52-1.25); GLUCOSE 114 mg/dL (75-110); MAGNESIUM 1.5 mg/dL (1.6-2.3); PHOSPHORUS 2.7 mg/dL (2.5-4.5); POTASSIUM 3.4 mmol/L (3.6-5.0); SODIUM 142.6 mmol/L (137-145)
[2016-11-02] MEDS: OXYCODONE HCL IR 5 MG TABLET PO PRN ×3 (06:12→22:32)
[2016-11-02] MEDS ORDERED: MAGNESIUM SULFATE/D5W 1 G/100 ML RTUPB IV SCH ×2 (06:15→12:00)
[2016-11-02] MEDS ORDERED: POTASSI CL 20 MEQ/50 ML RIDER 20 MEQ/50 ML RTUPB IV SCH ×2 (06:15→12:00)
[2016-11-02] MEDS ORDERED: CEFTAZIDIME PENTAHYDRATE 2 GM in DEXTROSE 5%-WATER 100 ML IV SCH (06:30)
[2016-11-02] MEDS: ASPIRIN 325 MG TABLET PO SCH (10:57)
[2016-11-02] MEDS: CEFTAZIDIME PENTAHYDRATE 2 GM in DEXTROSE 5%-WATER 100 ML IV SCH ×2 (10:57→17:52)
[2016-11-02] MEDS: ENOXAPARIN SODIUM INJ 40 MG/0.4 ML DISP.SYRIN SUBCUT SCH (10:58)
[2016-11-02] MEDS: DEXTROSE 5%-NORMAL SALINE 1,000 ML IV PRN (11:00)
--- NOTE | 2016-11-02 14:04 | PDOC PROGRESS REPORT ---
Subjective Progress Note for:: 11/02/16 Subjective:: Patient is confused this morning. Last night she had an episode of tachycardia heart rate 140. She currently is asymptomatic Physical Exam Vital Signs: Temp Pulse Resp BP Pulse Ox 97.9 F 88 20 138/82 H 100 11/02/16 03:59 11/02/16 07:00 11/02/16 03:59 11/02/16 03:59 11/02/16 03:59 Intake & Output 11/01/16 11/02/16 11/03/16 06:59 06:59 06:59 Intake Total 1482 1278 1425 Balance 1482 1278 1425 Weight 65.9 kg 67.2 kg General appearance: PRESENT: no acute distress Eye exam: PRESENT: conjunctiva pink. ABSENT: scleral icterus Mouth exam: PRESENT: moist, tongue midline Neck exam: ABSENT: JVD Respiratory exam: PRESENT: clear to auscultation steve. ABSENT: rales, rhonchi, wheezes Cardiovascular exam: PRESENT: RRR. ABSENT: diastolic murmur, rubs, systolic murmur GI/Abdominal exam: PRESENT: normal bowel sounds, soft. ABSENT: distended, guarding, mass, organolmegaly, rebound, tenderness Extremities exam: ABSENT: calf tenderness, clubbing, pedal edema Neurological exam: PRESENT: oriented to person, other - Patient strength is slightly decreased in the left upper extremity. ABSENT: oriented to place, oriented to time, oriented to situation Psychiatric exam: PRESENT: appropriate affect Skin exam: PRESENT: dry, intact, warm. ABSENT: cyanosis, rash Results Laboratory Results: 11/01/16 21:09 11/01/16 21:09 11/01/16 11/01/16 21:09 21:09 WBC 17.1 H RBC 3.84 Hgb 13.1 Hct 40.0 MCV 104 H MCH 34.2 H MCHC 32.8 RDW 12.6 Plt Count 306 Seg Neutrophils % 77.9 Lymphocytes % 13.9 Monocytes % 7.7 Eosinophils % 0.1 Basophils % 0.4 Absolute Neutrophils 13.4 H Absolute Lymphocytes 2.4 Absolute Monocytes 1.3 Absolute Eosinophils 0.0 Absolute Basophils 0.1 Sodium 142.6 Potassium 3.4 L Chloride 103 Carbon Dioxide 24 Anion Gap 16 BUN 9 Creatinine 0.82 Est GFR ( Amer) > 60 Est GFR (Non-Af Amer) > 60 Glucose 114 H Calcium 9.8 Phosphorus 2.7 Magnesium 1.5 L 10/30/16 09:38 Troponin I < 0.012 Impressions: Chest X-Ray 10/29/16 19:50 IMPRESSION: NO ACUTE RADIOGRAPHIC FINDING IN THE CHEST. Head CT 10/29/16 19:50 IMPRESSION: CHRONIC CHANGES OF ATROPHY AND MICROVASCULAR ISCHEMIA. NO ACUTE PROCESS. Head MRI 10/30/16 00:00 IMPRESSION: 1. Generalized atrophy and small-vessel ischemic changes. 2. Abnormal diffusion in the right cerebellar peduncle and inferior right cerebellar hemisphere consistent with acute nonhemorrhagic infarct. Brain MRI with MRA 10/30/16 08:39 IMPRESSION: NORMAL MRA OF THE [place] OF [place]. Carotid Doppler Study 10/30/16 08:39 IMPRESSION: Calcific plaque at both carotid bifurcations Right and left ICA velocities just distal to the shadowing plaque suggest against flow significant stenosis Assessment & Plan - Diagnosis (1) Stroke Qualifiers: CVA mechanism: unspecified Qualified Code(s): I63.9 - Cerebral infarction, unspecified Is this a current diagnosis for this admission?: YesPlan: Has a history of expressive aphasia as well as reported right hemiparesis. The patient has weakness on her left and has expressive aphasia which has improved. MRI does confirm an acute CVA. 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 She also has atherosclerotic cerebrovascular disease. Continue with PT, OT, aspirin. Will consult discharge planning for rehab placement. (2) Essential hypertension Is this a current diagnosis for this admission?: YesPlan: Pressure is stable off of medications. (3) Hyperlipidemia Qualifiers: Hyperlipidemia type: unspecified Qualified Code(s): E78.5 - Hyperlipidemia, unspecified Is this a current diagnosis for this admission?: YesPlan: Continue Lipitor. (4) UTI (urinary tract infection) Is this a current diagnosis for this admission?: YesPlan: Started on - Time Time Spent with patient: 25-34 minutes - Inpatient Certification Medical Necessity: Need Close Monitoring Due to Risk of Patient Decompensation, Need for IV Antibiotics - Plan Summary Plan Summary: Plan on discharge to rehab on Saturday.
[2016-11-02 17:23] LABS: ABSOLUTE BASOPHILS # (AUTO) 0.1 10^3/uL (0.0-0.2); ABSOLUTE LYMPHOCYTES (AUTO) 2.9 10^3/uL (0.5-4.7); ABSOLUTE MONOCYTES (AUTO) 0.9 10^3/uL (0.1-1.4); ABSOLUTE NEUT (AUTO) 6.6 10^3/uL (1.7-8.2); BASOPHILS % (AUTO) 0.5 % (0-2); EOSINOPHILS % (AUTO) 0.4 % (0-6); HEMATOCRIT 32.3 % (36.0-47.0); HGB HCT DIFFERENCE 0.4; LYMPHOCYTES % (AUTO) 27.6 % (13-45); MEAN CORPUSCULAR HEMOGLOBIN 34.5 pg (27.0-33.4); MEAN CORPUSCULAR HGB CONC 33.8 g/dL (32.0-36.0); MEAN CORPUSCULAR VOLUME 102 fl (80-97); MONOCYTES % (AUTO) 8.7 % (3-13); RED BLOOD COUNT 3.17 10^6/uL (3.72-5.28); RED CELL DISTRIBUTION WIDTH 12.6 % (11.5-14.0); SEGMENTED NEUTROPHILS % (AUTO) 62.8 % (42-78); WHITE BLOOD COUNT 10.5 10^3/uL (4.0-10.5)
[2016-11-02 17:31] LABS: HEMOGLOBIN 10.9 g/dL (12.0-15.5)
[2016-11-02] MEDS: ATORVASTATIN CALCIUM 40 MG TABLET PO SCH (22:29)
[2016-11-03] MEDS: CEFTAZIDIME PENTAHYDRATE 2 GM in DEXTROSE 5%-WATER 100 ML IV SCH ×3 (02:27→18:48)
[2016-11-03 05:28] LABS: ABSOLUTE LYMPHOCYTES (AUTO) 2.3 10^3/uL (0.5-4.7); ABSOLUTE NEUT (AUTO) 7.5 10^3/uL (1.7-8.2); BASOPHILS % (AUTO) 0.2 % (0-2); EOSINOPHILS % (AUTO) 0.4 % (0-6); HEMATOCRIT 34.2 % (36.0-47.0); HEMOGLOBIN 11.8 g/dL (12.0-15.5); HGB HCT DIFFERENCE 1.2; MEAN CORPUSCULAR HEMOGLOBIN 35.3 pg (27.0-33.4); MEAN CORPUSCULAR HGB CONC 34.4 g/dL (32.0-36.0); MEAN CORPUSCULAR VOLUME 103 fl (80-97); MONOCYTES % (AUTO) 9.1 % (3-13); RED BLOOD COUNT 3.33 10^6/uL (3.72-5.28); RED CELL DISTRIBUTION WIDTH 12.6 % (11.5-14.0); SEGMENTED NEUTROPHILS % (AUTO) 69.3 % (42-78); WHITE BLOOD COUNT 10.9 10^3/uL (4.0-10.5)
[2016-11-03 05:39] LABS: ANION GAP 9 (5-19); BLOOD UREA NITROGEN 5 mg/dL (7-20); CALCIUM 9.1 mg/dL (8.4-10.2); CARBON DIOXIDE 22 mmol/L (22-30); CHLORIDE 108 mmol/L (98-107); GLUCOSE 104 mg/dL (75-110); POTASSIUM 3.7 mmol/L (3.6-5.0); SODIUM 139.4 mmol/L (137-145)
[2016-11-03] MEDS: DEXTROSE 5%-NORMAL SALINE 1,000 ML IV PRN ×2 (05:48→22:05)
[2016-11-03] MEDS: ASPIRIN 325 MG TABLET PO SCH (09:19)
[2016-11-03] MEDS: ENOXAPARIN SODIUM INJ 40 MG/0.4 ML DISP.SYRIN SUBCUT SCH (09:19)
[2016-11-03] MEDS ORDERED: ONDANSETRON HCL INJ/PF 4 MG/2 ML SDV ONE (10:20)
[2016-11-03] MEDS ORDERED: ONDANSETRON HCL INJ/PF 4 MG/2 ML SDV IV PRN (11:52)
--- NOTE | 2016-11-03 11:52 | PDOC PROGRESS REPORT ---
Subjective Progress Note for:: 11/03/16 Subjective:: Complains of nausea Physical Exam Vital Signs: Temp Pulse Resp BP Pulse Ox 98.1 F 84 19 145/61 H 99 11/03/16 08:04 11/03/16 08:04 11/03/16 08:04 11/03/16 08:04 11/03/16 08:04 Intake & Output 11/02/16 11/03/16 11/04/16 06:59 06:59 06:59 Intake Total 1278 4130 Balance 1278 4130 Weight 67.2 kg 67.3 kg General appearance: PRESENT: no acute distress Eye exam: PRESENT: conjunctiva pink. ABSENT: scleral icterus Mouth exam: PRESENT: moist, tongue midline Neck exam: ABSENT: JVD Respiratory exam: PRESENT: clear to auscultation steve. ABSENT: rales, rhonchi, wheezes Cardiovascular exam: PRESENT: RRR. ABSENT: diastolic murmur, rubs, systolic murmur GI/Abdominal exam: PRESENT: normal bowel sounds, soft. ABSENT: distended, guarding, mass, organolmegaly, rebound, tenderness Extremities exam: ABSENT: calf tenderness, clubbing, pedal edema Neurological exam: PRESENT: awake, oriented to person, oriented to place, other - Patient's strength is decreased bilaterally. ABSENT: oriented to time, oriented to situation Psychiatric exam: PRESENT: flat affect Skin exam: PRESENT: dry, intact, warm. ABSENT: cyanosis, rash Results Laboratory Results: 11/03/16 04:50 11/03/16 04:50 11/02/16 11/03/16 11/03/16 17:14 04:50 04:50 WBC 10.5 10.9 H RBC 3.17 L 3.33 L Hgb 10.9 L D 11.8 L Hct 32.3 L 34.2 L MCV 102 H 103 H MCH 34.5 H 35.3 H MCHC 33.8 34.4 RDW 12.6 12.6 Plt Count 295 251 Seg Neutrophils % 62.8 69.3 Lymphocytes % 27.6 21.0 Monocytes % 8.7 9.1 Eosinophils % 0.4 0.4 Basophils % 0.5 0.2 Absolute Neutrophils 6.6 7.5 Absolute Lymphocytes 2.9 2.3 Absolute Monocytes 0.9 1.0 Absolute Eosinophils 0.0 0.0 Absolute Basophils 0.1 0.0 Sodium 139.4 Potassium 3.7 Chloride 108 H Carbon Dioxide 22 Anion Gap 9 BUN 5 L Creatinine 0.80 Est GFR ( Amer) > 60 Est GFR (Non-Af Amer) > 60 Glucose 104 Calcium 9.1 10/30/16 09:38 Troponin I < 0.012 Impressions: Chest X-Ray 10/29/16 19:50 IMPRESSION: NO ACUTE RADIOGRAPHIC FINDING IN THE CHEST. Head CT 10/29/16 19:50 IMPRESSION: CHRONIC CHANGES OF ATROPHY AND MICROVASCULAR ISCHEMIA. NO ACUTE PROCESS. Head MRI 10/30/16 00:00 IMPRESSION: 1. Generalized atrophy and small-vessel ischemic changes. 2. Abnormal diffusion in the right cerebellar peduncle and inferior right cerebellar hemisphere consistent with acute nonhemorrhagic infarct. Brain MRI with MRA 10/30/16 08:39 IMPRESSION: NORMAL MRA OF THE [place] OF [place]. Carotid Doppler Study 10/30/16 08:39 IMPRESSION: Calcific plaque at both carotid bifurcations Right and left ICA velocities just distal to the shadowing plaque suggest against flow significant stenosis Assessment & Plan - Diagnosis (1) Stroke Qualifiers: CVA mechanism: unspecified Qualified Code(s): I63.9 - Cerebral infarction, unspecified Is this a current diagnosis for this admission?: YesPlan: Has a history of expressive aphasia as well as reported right hemiparesis. The patient has weakness on her left and has expressive aphasia which has improved. MRI does confirm an acute CVA. 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 She also has atherosclerotic cerebrovascular disease. Continue with PT, OT, aspirin. Will go to rehab on Saturday (2) Essential hypertension Is this a current diagnosis for this admission?: YesPlan: Pressure is stable off of medications. (3) Hyperlipidemia Qualifiers: Hyperlipidemia type: unspecified Qualified Code(s): E78.5 - Hyperlipidemia, unspecified Is this a current diagnosis for this admission?: YesPlan: Continue Lipitor. (4) UTI (urinary tract infection) Is this a current diagnosis for this admission?: YesPlan: Started on Fortaz - Time Time Spent with patient: 25-34 minutes - Inpatient Certification Medical Necessity: Need for IV Antibiotics
[2016-11-03] MEDS: ATORVASTATIN CALCIUM 40 MG TABLET PO SCH (22:05)
[2016-11-04] MEDS: CEFTAZIDIME PENTAHYDRATE 2 GM in DEXTROSE 5%-WATER 100 ML IV SCH (01:44)
[2016-11-04 05:27] LABS: ANION GAP 12 (5-19); BLOOD UREA NITROGEN 4 mg/dL (7-20); CARBON DIOXIDE 25 mmol/L (22-30); CHLORIDE 102 mmol/L (98-107); CREATININE RESULT 0.78 mg/dL (0.52-1.25); GLUCOSE 99 mg/dL (75-110); SODIUM 139.1 mmol/L (137-145)
[2016-11-04] MEDS: POTASSI CL 20 MEQ/50 ML RIDER 20 MEQ/50 ML RTUPB IV SCH ×2 (05:55→07:15)
[2016-11-04] MEDS: CEFUROXIME 500 MG TABLET PO SCH ×2 (10:01→18:32)
[2016-11-04] MEDS: ASPIRIN 325 MG TABLET PO SCH (10:01)
[2016-11-04] MEDS: DEXTROSE 5%-NORMAL SALINE 1,000 ML IV PRN ×2 (10:02→22:23)
[2016-11-04] MEDS: ENOXAPARIN SODIUM INJ 40 MG/0.4 ML DISP.SYRIN SUBCUT SCH (10:02)
--- NOTE | 2016-11-04 10:19 | PDOC PROGRESS REPORT ---
Subjective Progress Note for:: 11/04/16 Subjective:: Denies any complaints Physical Exam Vital Signs: Temp Pulse Resp BP Pulse Ox 99.5 F 105 H 19 150/68 H 100 11/04/16 08:27 11/04/16 08:27 11/04/16 08:27 11/04/16 08:27 11/04/16 08:27 Intake & Output 11/03/16 11/04/16 11/05/16 06:59 06:59 06:59 Intake Total 4130 2325 Balance 4130 2325 Weight 67.3 kg 67.1 kg General appearance: PRESENT: no acute distress Eye exam: PRESENT: conjunctiva pink. ABSENT: scleral icterus Mouth exam: PRESENT: moist, tongue midline Neck exam: ABSENT: JVD Respiratory exam: PRESENT: clear to auscultation steve. ABSENT: rales, rhonchi, wheezes Cardiovascular exam: PRESENT: RRR. ABSENT: diastolic murmur, rubs, systolic murmur GI/Abdominal exam: PRESENT: normal bowel sounds, soft. ABSENT: distended, guarding, mass, organolmegaly, rebound, tenderness Extremities exam: ABSENT: calf tenderness, clubbing, pedal edema Neurological exam: PRESENT: oriented to person, oriented to place, CN II-XII grossly intact. ABSENT: oriented to time, oriented to situation, motor sensory deficit Psychiatric exam: PRESENT: appropriate affect Skin exam: PRESENT: dry, intact, warm. ABSENT: cyanosis, rash Results Laboratory Results: 11/04/16 04:29 11/04/16 04:29 11/04/16 11/04/16 11/04/16 04:29 04:29 04:29 WBC Cancelled RBC Cancelled Hgb Cancelled Hct Cancelled MCV Cancelled MCH Cancelled MCHC Cancelled RDW Cancelled Plt Count Cancelled Seg Neutrophils % Cancelled Lymphocytes % Cancelled Monocytes % Cancelled Eosinophils % Cancelled Basophils % Cancelled Absolute Neutrophils Cancelled Absolute Lymphocytes Cancelled Absolute Monocytes Cancelled Absolute Eosinophils Cancelled Absolute Basophils Cancelled Sodium 139.1 Potassium 3.0 L* Chloride 102 Carbon Dioxide 25 Anion Gap 12 BUN 4 L Creatinine 0.78 Est GFR ( Amer) > 60 Est GFR (Non-Af Amer) > 60 Glucose 99 Calcium 9.0 Magnesium 2.0 10/30/16 09:38 Troponin I < 0.012 Impressions: Chest X-Ray 10/29/16 19:50 IMPRESSION: NO ACUTE RADIOGRAPHIC FINDING IN THE CHEST. Head CT 10/29/16 19:50 IMPRESSION: CHRONIC CHANGES OF ATROPHY AND MICROVASCULAR ISCHEMIA. NO ACUTE PROCESS. Head MRI 10/30/16 00:00 IMPRESSION: 1. Generalized atrophy and small-vessel ischemic changes. 2. Abnormal diffusion in the right cerebellar peduncle and inferior right cerebellar hemisphere consistent with acute nonhemorrhagic infarct. Brain MRI with MRA 10/30/16 08:39 IMPRESSION: NORMAL MRA OF THE [place] OF [place]. Carotid Doppler Study 10/30/16 08:39 IMPRESSION: Calcific plaque at both carotid bifurcations Right and left ICA velocities just distal to the shadowing plaque suggest against flow significant stenosis Assessment & Plan - Diagnosis (1) Stroke Qualifiers: CVA mechanism: unspecified Qualified Code(s): I63.9 - Cerebral infarction, unspecified Is this a current diagnosis for this admission?: YesPlan: Has a history of expressive aphasia as well as reported right hemiparesis. The patient has weakness on her left and has expressive aphasia which has improved. MRI does confirm an acute CVA. 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 She also has atherosclerotic cerebrovascular disease. Continue with PT, OT, aspirin. Will go to rehab on Saturday (2) Essential hypertension Is this a current diagnosis for this admission?: YesPlan: Pressure is stable off of medications. (3) Hyperlipidemia Qualifiers: Hyperlipidemia type: unspecified Qualified Code(s): E78.5 - Hyperlipidemia, unspecified Is this a current diagnosis for this admission?: YesPlan: Continue Lipitor. (4) UTI (urinary tract infection) Is this a current diagnosis for this admission?: YesPlan: We will DC the Fortaz and start on Ceftin. (5) Hypokalemia Is this a current diagnosis for this admission?: YesPlan: Has received potassium replacements and we will check a potassium later today - Time Time Spent with patient: 15-24 minutes - Plan Summary Plan Summary: Plan on going to rehab tomorrow.
[2016-11-04] MEDS: OXYCODONE HCL IR 5 MG TABLET PO PRN (18:32)
[2016-11-04] MEDS: ATORVASTATIN CALCIUM 40 MG TABLET PO SCH (21:33)
--- NOTE | 2016-11-05 08:14 | PDOC TRANSFER SUMMARY ---
General - Admit/Disc Date/PCP Admission Date/Primary Care Provider: 10/30/16 08:32 Discharge Date: 11/05/16 - Discharge Diagnosis (1) Stroke Is this a current diagnosis for this admission?: YesSummary: Acute nonhemorrhagic CVA of the right cerebellar area (2) Essential hypertension Is this a current diagnosis for this admission?: Yes (3) Hyperlipidemia Is this a current diagnosis for this admission?: Yes (4) UTI (urinary tract infection) Is this a current diagnosis for this admission?: YesSummary: Treated initially with Fortaz. Changed over to oral Ceftin. Will complete 7 additional days of antibiotics. (5) Hypokalemia Is this a current diagnosis for this admission?: Yes (6) Back pain Is this a current diagnosis for this admission?: YesSummary: Patient has been on chronic narcotics for her low back pain. She was on long- acting morphine as an outpatient. This was stopped on admission and will not be continued. - Additional Information Resuscitation Status: Full Code Discharge Diet: Cardiac Discharge Activity: Activity As Tolerated Home Medications: Buspirone HCl [Buspar 30 mg Tablet] 30 mg PO Q12 10/30/16 Carisoprodol [Soma 350 mg Tablet] 350 mg PO QID 10/30/16 Cyproheptadine HCl [Periactin 4 mg Tablet] 4 mg PO BID 10/30/16 Duloxetine HCl 30 mg PO Q12 10/30/16 Omeprazole 20 mg PO DAILY 10/30/16 Prednisone [Deltasone 1 mg Tablet] 1 mg PO BID 10/30/16 Aspirin [Aspirin 325 mg Tablet] 325 mg PO DAILY tablet 11/05/16 Atorvastatin Calcium [Lipitor 40 mg Tablet] 40 mg PO QHS tablet 11/05/16 Cefuroxime Axetil [Ceftin 500 mg Tablet] 500 mg PO BID #14 tablet 11/05/16 Oxycodone HCl 15 mg PO QID PRN #30 tablet 11/05/16 History of Present Illness Admission Date/PCP: 10/30/16 08:32 History of Present Illness: EVERTON GAYTAN is a 66 year old female with prior stroke, which has left her with chronic right-sided hemiparesis and expressive dysphasia who presents to the emergency room for evaluation of above complaint. Patient has been discussed with emergency room physician who evaluated the patient. Patient has rather prominent expressive dysphasia, and seems intermittently somewhat confused, and is able to provide no history whatsoever in terms of acute or chronic events, review of systems, personal habits, family history, etc. No friends or family are present. Old inpatient records are reviewed. Yesterday morning, family reportedly noticed that patient was having a more difficult time talking than usual, unable to fully form words. Also noted to be using her right lower extremity less than usual. Hospital Course Hospital Course: 66-year-old female with a previous history of a CVA and mild to moderate dementia baseline who presented with expressive aphasia and left-sided weakness. Patient had not been taking aspirin on a daily basis. The patient was admitted and worked up as a presumed CVA. The head CT initially was negative. MRI however did confirm that she had a right cerebellar nonhemorrhagic infarction. Patient was started on aspirin. She was worked up with a carotid Doppler which showed no significant flow stenosis. She also had an echocardiogram which showed no evidence for mural thrombus. Her echocardiogram did however show left ventricular hypertrophy along with diastolic dysfunction. The patient was started on physical therapy and occupational therapy and was showing improvement however she needs referral to a assisted facility for continued rehabilitation. Patient also was noted to have a urinary tract infection and was put on Fortaz initially. She has been switched over to Ceftin and will complete an additional 7 days of Ceftin. Patient does have chronic low back pain. She was on both morphine and oxycodone upon presentation. Her long-acting morphine was stopped and she is continued on the oxycodone as needed. Patient does have dementia baseline and does have intermittent episodes where she refuses to cooperate. Physical Exam Vital Signs: Temp Pulse Resp BP Pulse Ox 99.2 F 102 H 17 135/67 H 99 11/04/16 23:52 11/05/16 02:00 11/04/16 23:52 11/04/16 23:52 11/04/16 23:52 Intake & Output 11/04/16 11/05/16 11/06/16 06:59 06:59 06:59 Intake Total 5785 2193 Balance 2322 2193 Weight 67.1 kg 67 kg General appearance: PRESENT: no acute distress Eye exam: PRESENT: conjunctiva pink. ABSENT: scleral icterus Mouth exam: PRESENT: moist, tongue midline Neck exam: ABSENT: JVD Respiratory exam: PRESENT: clear to auscultation steve. ABSENT: rales, rhonchi, wheezes Cardiovascular exam: PRESENT: RRR. ABSENT: diastolic murmur, rubs, systolic murmur GI/Abdominal exam: PRESENT: normal bowel sounds, soft. ABSENT: distended, guarding, mass, organolmegaly, rebound, tenderness Extremities exam: ABSENT: calf tenderness, clubbing, pedal edema Neurological exam: PRESENT: other - Patient refused to cooperate this morning with a neurological exam. Psychiatric exam: PRESENT: flat affect Skin exam: PRESENT: dry, intact, warm. ABSENT: cyanosis, rash Results Laboratory Results: 11/04/16 04:29 11/04/16 04:29 10/30/16 09:38 Troponin I < 0.012 Impressions: Chest X-Ray 10/29/16 19:50 IMPRESSION: NO ACUTE RADIOGRAPHIC FINDING IN THE CHEST. Head CT 10/29/16 19:50 IMPRESSION: CHRONIC CHANGES OF ATROPHY AND MICROVASCULAR ISCHEMIA. NO ACUTE PROCESS. Head MRI 10/30/16 00:00 IMPRESSION: 1. Generalized atrophy and small-vessel ischemic changes. 2. Abnormal diffusion in the right cerebellar peduncle and inferior right cerebellar hemisphere consistent with acute nonhemorrhagic infarct. Brain MRI with MRA 10/30/16 08:39 IMPRESSION: NORMAL MRA OF THE [place] OF [place]. Carotid Doppler Study 10/30/16 08:39 IMPRESSION: Calcific plaque at both carotid bifurcations Right and left ICA velocities just distal to the shadowing plaque suggest against flow significant stenosis Transfer Plan - Disposition Transfer Plan: Patient is transferred to the [facility] for continued rehabilitation, PT , OT, speech therapy - Time Spent with Patient Time spent with patient: Less than 30 Minutes Qualifiers PATEINT BEING DISCHARGED WITH ANY OF THE FOLLOWING DIAGNOSIS?: Stroke Stroke Pt being discharged on Anti-thrombolytic therapy?: Yes Stroke Pt being discharged on Anti-coagulation therapy?: No Reason(s) for not prescribing Anti-coagulation therapy:: Procedure Contraindicated Stroke Pt being discharged on Statins?: Yes Plan Discharge Plan: Patient is transferred to the [facility] for continued rehabilitation. Time Spent: Greater than 30 Minutes
[2016-11-05] MEDS: OXYCODONE HCL IR 5 MG TABLET PO PRN ×2 (08:16→14:37)
[2016-11-05] MEDS: CEFUROXIME 500 MG TABLET PO SCH (10:59)
[2016-11-05] MEDS: ASPIRIN 325 MG TABLET PO SCH (10:59)
[2016-11-05] MEDS: ENOXAPARIN SODIUM INJ 40 MG/0.4 ML DISP.SYRIN SUBCUT SCH (10:59)
[2016-11-05 12:44] VITALS: BP 139/61
== END 2016-11-05 15:46 | DRG 65 ==
LOC: ER 19:24 → EH 10-30 03:24 → UNDOADMIN 10-30 03:24 → EH 10-30 08:32 → 3W 10-31
PROVIDERS: ADMIT Family Medicine; ATTEND Family Medicine
DX: I63.341 Cerebral infarction due to thrombosis of right cerebellar artery (principal); G81.91 Hemiplegia, unspecified affecting right dominant side; N39.0 Urinary tract infection, site not specified; R47.02 Dysphasia; I10 Essential (primary) hypertension; E78.5 Hyperlipidemia, unspecified; E87.6 Hypokalemia; F03.90 Unspecified dementia, unspecified severity, without behavioral disturbance, psychotic disturbance, mood disturbance, and anxiety; G89.29 Other chronic pain; M54.9 Dorsalgia, unspecified; Z79.82 Long term (current) use of aspirin; Z79.899 Other long term (current) drug therapy
CPT/HCPCS: 36415; 70450; 70544; 70551; 71010; 80048; 80053; 80061; 81001; 82553; 83735; 84100; 84443; 84484; 85025; 85610; 85730; 93005; 93010; 93306; 93880; 99285; G8978-GP; G8979-GP; G8987-GO; G8988-GO; G9162-GN; G9163-GN; J0713; J1650; J2405; J3475; J3480; J3490; J7030; J7040